=== PATIENT | female | born 1960 | race Caucasian/White ===

== ENCOUNTER 2025-11-09 10:35 | Emergency (ER) | payer MEDICARE, SELFPAY ==
--- OUTSIDE RECORDS SUMMARY | 2025-11-01 09:10 | XMS_ITS | Encounter Summary ---
Author Organization [facility] Address [address] [place] [address] Care Team Providers Care Tool And Fixture Repairer Name Role Phone Danny Duckworth MD Primary Care Provider [phone] Reason for Visit * Tx/Med Therapy Plan Auth (Routine) - Authorized Specialty Diagnoses / Procedures Referred By Contac t Referred To Contact Multi Specialty Diagnoses Iron deficiency anemia due to chronic blood loss Procedures [place] IRON SUCROSE INJECTION Zaire Alba NP [address] [facility] [address] [place] [address] Phone: tel: fax: [facility] Outpatient Services [address] [place] [address] Phone: tel: fax: Referral ID Status Reason Start Date Expiration Date V isits Requested Visits Authorized [id number] Authorized 08/27/2025 11/04/2025 6 6 Encounter Details Date Type Department Care Team (Latest Contact Info) Description 11/01/2025 9:10 AM DIESEL INSTRUCTOR - 11/01/2025 11:59 PM [facility] Hospital Encounter [facility] Outpatient Services [address] [address] Zaire Wahl NP [address] [facility] [address] [place] [address] Discharge Disposition: Home or Self Care Social History Tobacco Use Types Packs/Day Years Used Date Smoking Tobacco: Every Day Cigarettes 1 30 Passive Smoke Exposure: Current Smokeless Tobacco: Never Alcohol Use Standard Drinks/Week Comments Yes 0 (1 standard drink = 0.6 oz pur e alcohol) socially Feeling Safe Answer Date Recorded Are you in a relationship wi th someone who hurts you emotionally and/or physically? No 06/28/2024 Comments No Sex and Gender Information Value Date Recorded Sex Assigned at Not on file Legal Sex Female 9:51 AM DIESEL INSTRUCTOR Gender Identity Not on file Sexual Orientation Not on file documented as of this encounter Last Filed Vital Signs Vital Sign Reading Time Taken Comments Blood Pressure 154/68 11/01/2025 9:15 AM DIESEL INSTRUCTOR Pulse 102 11/01/2025 9:15 AM DIESEL INSTRUCTOR Temperature 36.6 C (97.8 F) 11/01/2025 9:15 AM DIESEL INSTRUCTOR Respiratory Rate 18 11/01/2025 9:15 AM DIESEL INSTRUCTOR Oxygen Saturation 98% 11/01/2025 9:15 AM DIESEL INSTRUCTOR Inhaled Oxygen Concentration - - Weight - - Height - - Body Mass Index - - documented in this encounter Functional Status * Adult Acuity Scoring Question Answer Date of Assessment Author Readmission Risk Score 6 11/02/2025 12:31 A M DIESEL INSTRUCTOR Batch User, [facility] Admit Inspector Aluminum Boat [id number] Score (Used for patients with atrial fibrillation) 3 11/02/2025 12:31 AM DIESEL INSTRUCTOR Batch User, [facility] Admit Inspector [employer] HAS-BLED Score (Used for patients with atrial fibrillation) 3 11/02/2025 12:31 AM DIESEL INSTRUCTOR Batch User, [facility] Admit Inspector Aluminum Boat documented as of this encounter Discharge Instructions * Attachments The following attachments cannot be sent through Care Everywhere. * Iron Rich Diet (Lithuanian) documented in this encounter Medications at Time of Discharge melatonin 5 mg Tablet Take 5 mg by mouth nightly as needed for Insomnia. ascorbic acid (VITAMIN C) 500 mg Tablet, Chewable Take 500 mg by mouth. rosuvastatin (CRESTOR) 10 mg tabletIndications:M ixed hyperlipidemia Take 1 Tablet (10 mg) by mouth daily. 100 Tablet 3 09/17/2025 metFORMIN (GLUCOPHAGE) 500 mg tabletIndications:P rediabetes Take 1 Tablet (500 mg) by mouth 2 times daily. 200 Tablet 3 09/17/2025 losartan (COZAAR) 50 mg tabletIndications:P rimary hypertension Take 1 Tablet (50 mg) by mouth daily. 100 Tablet 3 09/17/2025 hydroCHLOROthiazide 25 mg tabletIndications:P rimary hypertension Take 1 Tablet (25 mg) by mouth daily. 100 Tablet 3 09/17/2025 nicotine polacrilex (NICORETTE) 2 mg lozenge, miniIndications:Cig arette nicotine dependence without complication,Tobacc o use 1 Lozenge (2 mg) by Mouth/Throat route every 2 hours as needed for Smoking Cessation. 135 Lozenge 2 06/28/2025 ferrous sulfate 325 mg (65 mg iron) tabletIndications:I brandi deficiency anemia due to chronic blood loss TAKE ONE TABLET BY MOUTH DAILY 90 Tablet 3 06/20/2025 blood sugar diagnostic (Blood Glucose Test) StripIndications:Ty pe 2 diabetes mellitus without complication, without long-term current use of insulin ([facility]) Use 1 strip to test blood sugar once daily 100 Each 3 05/07/2025 clopidogreL (PLAVIX) 75 mg Tablet Take 1 Tablet (75 mg) by mouth daily. 90 Tablet 3 03/27/2025 citalopram (CeleXA) 40 mg tabletIndications:C royer mild episode of major depressive disorder, unspecified whether recurrent TAKE ONE TABLET BY MOUTH EVERY DAY 100 Tablet 1 03/27/2025 rOPINIRole (REQUIP) 0.5 mg tabletIndications:R estless legs TAKE ONE TABLET BY MOUTH DAILY AT BEDTIME 100 Tablet 3 02/19/2025 calcium carbonate + vitamin D (CALTRATE+D) 600 mg-10 mcg (400 unit) Tablet Take 1 Tablet by mouth daily. albuterol HFA 90 mcg inhaler Take 2 Puffs by inhalation every 6 hours as needed for Shortness of Breath. 04/16/2019 multivitamin (DAILY-ANDRES) tablet Take 1 Tablet by mouth daily before breakfast. 02/11/2016 loratadine (CLARITIN) 10 mg tablet Take 10 mg by mouth daily. 02/11/2016 pantoprazole (PROTONIX) 40 mg Tablet, Delayed Release (E.C.)Indications:G astroesophageal reflux disease, unspecified whether esophagitis present TAKE 1 TABLET BY MOUTH DAILY 100 Tablet 1 04/23/2025 5 documented as of this encounter Progress Notes * Nguyen Murray RN - 11/01/2025 9:30 AM CST Patient arrived to outpatient services for Venofer 300 mg infusions dose 2. Vital signs obtained and stable. RN started IV x 1 attempt with success to right AC with 22 ga and patient tolerated well. RN administered pre meds per order. RN then administered Venofer 300 mg infusion over 90 minutes andpatient tolerated well. After completion of infusion, RN flushed IV tubing with saline and removed IV with catheter intact and covered site with gauze and coban. Patient aware of next appt, signed AVS and discharged out of facility in stable condition. EL INSTRUCTOR documented in this encounter Plan of Treatment Upcoming Encounters Date Type Department Care Team (Late st Contact Info) Description 11/22/2025 11:00 AM DIESEL INSTRUCTOR Appointment [facility] Ultrasound [place] [address] [place] [phone] Cuauhtemoc Tan MD [address] [place] [phone] 11/25/2025 11:30 AM DIESEL INSTRUCTOR Appointment [facility] Nuclear Medicine [address] [place] [address] Cuauhtemoc Tan MD [address] [place] [phone] 11/25/2025 12:00 PM DIESEL INSTRUCTOR Appointment [facility] Nuclear Medicine [address] [place] [address] Cuauhtemoc Tan MD [address] [place] [phone] 12/10/2025 10:40 AM DIESEL INSTRUCTOR Office Visit [address] [phone] Danny Duckworth MD [address] [phone] 12/16/2025 11:10 AM DIESEL INSTRUCTOR Appointment [facility] [address] [address] Everett Tavarez MD [address] [place] [phone] 12/23/2025 10:00 AM DIESEL INSTRUCTOR Office Visit [facility] Cancer and Hematology [place] [address] [address] Everett Tavarez MD [address] [place] [phone] 03/19/2026 10:00 AM CDT Office Visit [facility] [address] [phone] Danny Duckworth MD [address] [phone] 05/07/2026 2:20 PM CDT Office Visit [facility] [address] [facility] [address] [place] [phone] Nathan Nash, CLEAN UP HELPER [employer] [address] [facility] [address] [place] [phone] documented as of this encounter Visit Diagnoses Diagnosis Iron deficiency anemia due to chronic blood loss- Primary Iron deficiency anemia secondary to blood loss (chronic) documented in this encounter Administered Medications Inactive Administered Medications - up to 3 most recent administrations Medication Order MAR Action Action Date Dose Rate Site acetaminophen (TYLENOL) tablet 650 mg 650 mg, Oral, ONE TIME ONLY, 1 dose, On Tue11/01/25 at 0915, RoutineIndications:Iron deficiency anemia due to chronic blood loss Given 11/01/2025 9:17 AM DIESEL INSTRUCTOR 650 mg cetirizine (ZyrTEC) tablet 10 mg 10 mg, Oral, ONE TIME ONLY, 1 dose, On Tue11/01/25 at 0915, RoutineIndications:Iron deficiency anemia due to chronic blood loss Given 11/01/2025 9:17 AM DIESEL INSTRUCTOR 10 mg iron sucrose (VENOFER) 300 mg in sodium chloride 0.9 % 250 mL IVPB 300 mg, IV, ONE TIME ONLY, 1 dose, On Tue11/01/25 at 0915, RoutineIndications:Iron deficiency anemia due to chronic blood loss New Bag 11/01/2025 9:47 AM DIESEL INSTRUCTOR 300 mg methylPREDNISolone sodium succinate (SOLU-Medrol) 40 mg in sterile water 1 mL injection 40 mg, IV, ONE TIME ONLY, 1 dose, On Tue11/01/25 at 0915, RoutineIndications:Iron deficiency anemia due to chronic blood loss Given 11/01/2025 9:29 AM DIESEL INSTRUCTOR 40 mg sodium chloride flush injection 10 mL 10 mL, IV, SEE ADMIN INSTRUCTIONS, Starting on Tue11/01/25 at 0912, Until 11/02/25 at 0231, RoutineIndications:Iron deficiency anemia due to chronic blood loss Given 11/01/2025 9:29 AM DIESEL INSTRUCTOR 10 mL documented in this encounter Care Teams Tool And Fixture Repairer Relationship Specialty Start Date End Date Danny Duckworth MD [address] [place] [phone] PCP - General Family Practice 03/06/24 documented as of this encounter
--- OUTSIDE RECORDS SUMMARY | 2025-11-04 09:26 | XMS_ITS | Encounter Summary ---
Author Organization [facility] Address [address] [place] [address] Care Team Providers Care Loading Dock Hand Name Role Phone Danny Duckworth MD Primary Care Provider [phone] Reason for Visit * Tx/Med Therapy Plan Auth (Routine) - Authorized Specialty Diagnoses / Procedures Referred By Contac t Referred To Contact Multi Specialty Diagnoses Iron deficiency anemia due to chronic blood loss Procedures [place] IRON SUCROSE INJECTION Zaire Alba NP [address] [address] Phone: tel: fax: [facility] Outpatient Services [address] [place] [address] Phone: tel: fax: Referral ID Status Reason Start Date Expiration Date V isits Requested Visits Authorized [id number] Authorized 08/27/2025 11/04/2025 6 6 Encounter Details Date Type Department Care Team (Latest Contact Info) Description 11/04/2025 9:26 AM FIELD PROFESSIONAL - 11/04/2025 11:59 PM [facility] Hospital Encounter [facility] Outpatient Services [address] [phone] Zaire Wahl NP [address] [facility] [address] [place] [address] Discharge Disposition: Home or Self [...] on file Legal Sex Female 9:51 AM FIELD PROFESSIONAL Gender Identity Not on file Sexual Orientation Not on file documented as of this encounter Last Filed Vital Signs Vital Sign Reading Time Taken Comments Blood Pressure 132/61 11/04/2025 10:10 AM FIELD PROFESSIONAL Pulse 113 11/04/2025 10:10 AM FIELD PROFESSIONAL Temperature 36.7 C (98.1 F) 11/04/2025 10:10 AM FIELD PROFESSIONAL Respiratory Rate 18 11/04/2025 10:10 AM FIELD PROFESSIONAL Oxygen Saturation 98% 11/04/2025 10:10 AM FIELD PROFESSIONAL Inhaled Oxygen Concentration - - Weight - - Height - - Body Mass Index - - documented in this encounter Functional Status * Adult Acuity Scoring Question Answer Date of Assessment Author Readmission Risk Score 6 11/05/2025 12:33 A M FIELD PROFESSIONAL Batch User, [facility] Admit Relief Mate [id number] Score (Used for patients with atrial fibrillation) 3 11/05/2025 12:33 AM FIELD PROFESSIONAL Batch User, [facility] Admit Relief Mate HAS-BLED Score (Used for patients with atrial fibrillation) 3 11/05/2025 12:33 AM FIELD PROFESSIONAL Batch User, [facility] Admit Relief Mate documented as of this encounter Discharge Instructions * Attachments The following attachments cannot be sent through Care Everywhere. * Iron Rich Diet (St Helenian) documented in this encounter Medications at Time of Discharge pantoprazole (PROTONIX) 40 mg Tablet, Delayed Release (E.C.)Indications:G astroesophageal reflux disease, unspecified whether esophagitis present TAKE 1 TABLET BY MOUTH DAILY 100 Tablet 3 11/04/2025 melatonin 5 mg Tablet Take 5 mg [...] complication, without long-term current use of insulin ([facility]) Use 1 strip to test blood sugar once daily 100 Each 3 05/07/2025 clopidogreL (PLAVIX) 75 mg Tablet Take 1 Tablet (75 mg) by mouth daily. 90 Tablet 3 03/27/2025 citalopram (CeleXA) 40 mg tabletIndications:C kathrinerenpolly mild episode of major depressive disorder, unspecified [...] Take 10 mg by mouth daily. 02/11/2016 documented as of this encounter Progress Notes * Nguyen Murray RN - 11/04/2025 9:30 AM CST Patient arrived to outpatient services for Venofer 300 mg infusions dose 3. Vital signs obtained and stable. RN started [...] discharged out of facility in stable condition. D PROFESSIONAL documented in this encounter Plan of Treatment Upcoming Encounters Date Type Department Care Team (Late st Contact Info) Description 11/22/2025 11:00 AM FIELD PROFESSIONAL Appointment [facility] Ultrasound [place] [address] [place] [phone] Cuauhtemoc Tan MD [address] [place] [place] [phone] 11/25/2025 11:30 AM FIELD PROFESSIONAL Appointment [facility] Nuclear Medicine [address] [place] [address] Cuauhtemoc Tan MD [address] [place] [address] [place] [phone] 11/25/2025 12:00 PM FIELD PROFESSIONAL Appointment [facility] Nuclear Medicine [address] [place] [address] Cuauhtemoc Tan MD [address] [place] [address] [place] [phone] 12/10/2025 10:40 AM FIELD PROFESSIONAL Office Visit [address] [phone] Danny Duckworth MD [address] [phone] 12/16/2025 11:10 AM FIELD PROFESSIONAL Appointment [facility] Laboratory Services [address] [facility] [address] [place] [address] Everett Tavarez MD [address] [place] [address] [address] [place] [address] 12/23/2025 10:00 AM FIELD PROFESSIONAL Office Visit [facility] Cancer and Hematology [place] [address] [facility] 2 [place] [address] Everett Tavarez MD [address] [place] [phone] 03/19/2026 10:00 AM CDT Office Visit [address] [phone] Danny Duckworth MD [address] [phone] 05/07/2026 2:20 PM CDT Office Visit [facility] [address] [facility] [address] [place] [phone] Nathan Nash, [facility] [address] [facility] [address] [place] [phone] documented as of this encounter Visit [...] Oral, ONE TIME ONLY, 1 dose, On Tue11/04/25 at 0930, RoutineIndications:Iron deficiency anemia due to chronic blood loss Given 11/04/2025 10:12 AM FIELD PROFESSIONAL 650 mg cetirizine (ZyrTEC) tablet 10 mg 10 mg, Oral, ONE TIME ONLY, 1 dose, On Tue11/04/25 at 0930, RoutineIndications:Iron deficiency anemia due to chronic blood loss Given 11/04/2025 10:12 AM FIELD PROFESSIONAL 10 mg iron sucrose (VENOFER) 300 mg in sodium chloride 0.9 % 250 mL IVPB 300 mg, IV, ONE TIME ONLY, 1 dose, On Tue11/04/25 at 0930, RoutineIndications:Iron deficiency anemia due to chronic blood loss New Bag 11/04/2025 10:40 AM FIELD PROFESSIONAL 300 mg methylPREDNISolone sodium succinate (SOLU-Medrol) 40 mg in sterile water 1 mL injection 40 mg, IV, ONE TIME ONLY, 1 dose, On Tue11/04/25 at 0930, RoutineIndications:Iron deficiency anemia due to chronic blood loss Given 11/04/2025 10:18 AM FIELD PROFESSIONAL 40 mg sodium chloride flush injection 10 mL 10 mL, IV, SEE ADMIN INSTRUCTIONS, Starting on Tue11/04/25 at 0927, Until Tue11/05/25 at 0233, RoutineIndications:Iron deficiency anemia due to chronic blood loss Given 11/04/2025 12:13 PM FIELD PROFESSIONAL 10 mL Given 11/04/2025 10:41 AM FIELD PROFESSIONAL 10 mL documented in this encounter Care Teams Loading Dock Hand Relationship Specialty Start Date End Date Danny Duckworth MD [address] [place] [phone] PCP - General Family Practice 03/06/24 documented as of this encounter
--- OUTSIDE RECORDS SUMMARY | 2025-11-05 11:15 | XMS_ITS | Encounter Summary ---
[facility] Organization [facility] Address [address] [place] [address] Care Team Providers Care Incident Analyst Name Role Phone Danny Duckworth MD Primary Care Provider [phone] Reason for Referral * Nuclear Medicine (Routine) - Authorized Specialty Diagnoses / Procedures Referred By Contac t Referred To Contact Radiology Diagnoses Other forms of angina pectoris Shortness of breath Hypertension, essential Mixed hyperlipidemia ASHD (arteriosclerotic heart disease) Tobacco use Stage 3a chronic kidney disease (CMS/HCC) Morbid obesity (CMS/HCC) Procedures NM PHARMACOLOGICAL STRESS TEST Cuauhtemoc Tan MD [address] [place] [phone] Phone: tel: fax: [facility] Nuclear Medicine [address] [place] [phone] Phone: tel: fax: Referral ID Status Reason Start Date Expiration Date Visits Requested Visits Authorized [id number] Authorized F CTS to Schedule 5 12/06/2026 1 1 IC HEALTH ADMINISTRATOR * Nuclear Medicine (Routine) - Pending Review Specialty Diagnoses / Procedures Referred By Contac t Referred To Contact Radiology Diagnoses Other forms of angina pectoris Shortness of breath Hypertension, essential Mixed hyperlipidemia ASHD (arteriosclerotic heart disease) Tobacco use Stage 3a chronic kidney disease (CMS/HCC) Morbid obesity (CMS/HCC) Procedures NM MYOCARD PERF IMAG SPECT MULT Cuauhtemoc Tan MD [address] [place] [address] Phone: tel: fax: [facility] Nuclear Medicine [address] [place] [address] Phone: tel: fax: Referral ID Status Reason Start Date Expiration Date Visits Requested Visits Authorized [id number] Pending Review SGF CTS to Schedule 5 12/06/2026 1 1 IC HEALTH ADMINISTRATOR * Echocardiography (Routine) - Pending Review Specialty Diagnoses / Procedures Referred By Morenita t Referred To Contact Radiology Diagnoses Other forms of angina pectoris Shortness of breath Hypertension, essential Mixed hyperlipidemia ASHD (arteriosclerotic heart disease) Tobacco use Stage 3a chronic kidney disease (CMS/HCC) Morbid obesity (CMS/HCC) Procedures ECHO COMPLETE - CONTRAST AND STRAIN IF INDICATED ECHO COMPLETE - CONTRAST AND STRAIN IF INDICATED HI ECHO TTHRC R-T 2D W/WOM-MODE COMPL SPEC&COLR D HI MYOCRD STRAIN IMG SPECKLE TRCK ASSMT MYOCRD [facility] HI TTE W OR WO FOL WCON,DOPPLER Cuauhtemoc Tan MD [address] [place] [address] Phone: tel: fax: [facility] [place] [address] [place] [address] Phone: tel: fax: Referral ID Status Reason Start Date Expiration Date Visits Requested Visits Authorized [id number] Pending Review [facility] CTS to Schedule 5 12/06/2026 1 1 IC HEALTH ADMINISTRATOR Reason for Visit * Reason Comments Referral * Eval and Treat (Routine) - Closed Specialty Diagnoses / Procedures Referred By Contact Referred To Contact Interventional Cardiology / Cardiology Diagnoses Atherosclerosis of coronary artery, unspecified vessel or lesion type, unspecified whether angina present, unspecified whether [place] or transplanted heart Procedures HI OFFICE/OUTPATIENT ESTABLISHED MOD MDM 30 MIN HI OFFICE/OUTPATIENT NEW MODERATE MDM 45 MINUTES Everett Tavarez MD [address] [facility] [address] [place] [address] Phone: tel: fax:[phone] [facility] [address] [place] [phone] Phone: tel: fax: Referral ID Status Reason Start Date Expiration Date Visits Re quested Visits Authorized [id number] Closed 10/24/2025 10/24/2026 1 1 Encounter Details Date Type Department Care Team (Late st Contact Info) Description 11/05/2025 11:15 AM PUBLIC HEALTH ADMINISTRATOR Office Visit [facility] [address] [place] [phone] Everett Tavarez MD [address] [address] Cuauhtemoc Tan MD [address] [place] [phone] Other forms of angina pectoris (Primary Dx); Shortness of breath; Hypertension, essential; Mixed hyperlipidemia; ASHD (arteriosclerotic heart disease); Tobacco use; Stage 3a chronic kidney disease (CMS/HCC); Morbid obesity (CMS/HCC) Social History Tobacco Use Types Packs/Day Years [...] on file Legal Sex Female 9:51 AM PUBLIC HEALTH ADMINISTRATOR Gender Identity Not on file Sexual Orientation Not on file documented as of this encounter Last Filed Vital Signs Vital Sign Reading Time Taken Comments Blood Pressure 130/60 11/05/2025 10:39 AM PUBLIC HEALTH ADMINISTRATOR Pulse 109 11/05/2025 10:39 AM PUBLIC HEALTH ADMINISTRATOR Temperature - - Respiratory Rate - - Oxygen Saturation - - Inhaled Oxygen Concentration - - Weight 97.7 kg (215 lb 6.4 oz) 11/05/2025 10:39 AM PUBLIC HEALTH ADMINISTRATOR Height 156.2 cm (5' 1.5 ) 11/05/2025 10:39 AM CS T Body Mass Index 40.04 11/05/2025 10:39 AM PUBLIC HEALTH ADMINISTRATOR documented in this encounter Progress Notes * Cuauhtemoc Tan MD - 11/05/2025 10:47 AM CSTAssociated Order(s): EKG 12-LEAD Pre-Procedure Diagnose(s): Hypertension, unspecified type Images from the original note were not included. Cardiology Clinic Note Patient name: Cristal Broussard. [id number] Date of : 1960 Reason for Consultation Referral Subjective: History of Present Illness: Patient Active Problem List Diagnosis Code Left direct anterior FAB- Janessa 02/18/2016 M16.12 Left hip pain M25.552 Tobacco use Z72.0 Depression F32.A GERD (gastroesophageal reflux disease) K21.9 Anxiety F41.9 Osteoporosis M81.0 Dyshidrotic eczema L30.1 HTN (hypertension) I10 Hyperlipidemia E78.5 Latex sensitivity Z91.040 Current smoker F17.200 Inflammatory arthritis M13.80 DDD (degenerative disc disease), lumbar M51.369 Elevated liver enzymes R74.8 Degenerative lumbar spinal stenosis M48.061 Iron deficiency anemia due to chronic blood loss D50.0 Prediabetes R73.03 Stage 3a chronic kidney disease (CMS/HCC) N18.31 Morbid obesity (CMS/HCC) E66.01 Ingrown toenail of both feet L60.0 Cristal Broussard is a 65 y.o. year old female who Past Medical History: No date: Anxiety No date: COPD (chronic obstructive pulmonary disease) (CMS/HCC) No date: Current smoker No date: DDD (degenerative disc disease), lumbar No date: Depression No date: Dyspnea on exertion No date: Eye injury Comment: Metal years ago No date: GERD (gastroesophageal reflux disease) No date: HTN (hypertension) No date: Hyperlipidemia No date: Hypothyroidism Comment: pt denies No date: Inflammatory arthritis No date: Injury of back No date: Joint pain No date: Latex sensitivity No date: Night sweats No date: Obesity (BMI 30-39.9) No date: Osteoporosis No date: Preop general physical exam No date: Smoker 04/07/2017: Status post total replacement of left hip 65-year-old female with past medical Struve hypertension, hyperlipidemia, ASHD (patient mentions she has had blockages in her mesenteric artery status post stenting/PAD), COPD, ongoing tobacco abuse,GERD is here to establish care with cardiology. On further questioning patient mentions that patient has been having significant episodes of chest pain, atypical, pressure-like, substernal, precordial, nonpositional, nonpleuritic, nonpalpable, no aggravating or relieving factors, no radiation and also has shortness of breath with mild levels of exertion. Patient denies any presyncopal or syncopal episodes. To evaluate for above will do echocardiogram, exercise stress test. I explained the entire procedures, alternatives in detail with all the risk and benefit involved. I also explained that if any of the testing were to come abnormal patient may need further invasive/noninvasive testing including coronary angiography plus minus PCI versus cardiac CTA versus other modalities. I explained the procedure in detail as well as with all the risk and benefit involved and the patient is agreeable to move forward with the plan. Will request PCP to consider referral to vascular surgery for aforementioned PAD/mesenteric artery issues. Evaluation, management and appropriate referrals for noncardiac etiologies potentially contributingto patient's presentation will be deferred to patient's PCP. I had an extensive discussion with thepatient regarding further course of action, necessary testing, emergency precautions and patient isagreeable with the same. Past Medical History: Past Medical History: Diagnosis Date Anxiety COPD (chronic obstructive pulmonary disease) ([facility]) Current smoker DDD (degenerative disc disease), lumbar Depression Dyspnea on exertion Eye injury Metal years ago GERD (gastroesophageal reflux disease) HTN (hypertension) Hyperlipidemia Hypothyroidism pt denies Inflammatory arthritis Injury of back Joint pain Latex sensitivity Night sweats Obesity (BMI 30-39.9) Osteoporosis Preop general physical exam Smoker Status post total replacement of left hip 04/07/2017 Past Surgical History: Past Surgical History: Procedure Laterality Date HX CARPAL TUNNEL RELEASE HX SECTION HX COLONOSCOPY N/A 06/28/2024 COLONOSCOPY performed by Prudencio Samayoa DO at [facility] ENDOSCOPY ASIA HX ESOPHAGOGASTRODUODENOSCOPY N/A 06/28/2024 ESOPHAGOGASTRODUODENOSCOPY performed by Prudencio Samayoa DO at [facility] ENDOSCOPY ASIA HX HEMORRHOIDECTOMY 11/2020 HX KNEE SURGERY Left 2014 x2 arthroscopy x 2 scope and graft HI ARTHRODESIS POSTERIOR INTERBODY 1 NTRSPC LUMBAR N/A 06/09/2021 LUMBAR INTERBODY FUSION 1 LEVEL POSTERIOR performed by Kahlida Smith MD at [facility] OR HI ARTHRODESIS POSTERIOR/PSTLAT TQ 1NTRSPC LUMBAR N/A 06/09/2021 LUMBAR SPINAL FUSION 1 LEVEL POSTERIOR performed by Khalida Smith MD at [facility] OR HI ARTHRODESIS POSTERIOR/PSTLAT TQ 1NTRSPC LUMBAR N/A 06/09/2021 LUMBAR SPINAL FUSION performed by Khalida Smith MD at [facility] OR HI ARTHRP ACETBLR/PROX FEM PROSTC AGRFT/ALGRFT Left 02/18/2016 HIP ARTHROPLASTY TOTAL ANTERIOR APPROACH performed by Darian Pizarro MD at [facility] OR HI DIAGNOSTIC ARTHROSCOPY SHOULDER +- SYNOVIAL BX Right 05/11/2019 SHOULDER ARTHROSCOPY performed by Jv [place] MD at [facility] OR HI IONM 1 ON 1 IN OR W/ATTENDANCE EACH 15 MINUTES N/A 06/09/2021 INTRAOPERATIVE NEUROPHYSIOLOGIC MONITORING performed by Khalida Smith MD at [facility] OR HI SURGICAL ARTHROSCOPY GASPER W/CORACOACRM LIGM RLS Right 05/11/2019 SHOULDER ACROMIOPLASTY ARTHROSCOPIC performed by Jv [place] MD at [facility] OR HI SURGICAL ARTHROSCOPY SHOULDER DSTL CLAVICULC Right 05/11/2019 SHOULDER W/ DISTAL CLAVICLE RESECTION ARTHROSCOPIC performed by Jv [place] MD at [facility] OR HI SURGICAL ARTHROSCOPY SHOULDER W/ROTATOR CUFF RPR Right 05/11/2019 SHOULDER ROTATOR CUFF ARTHROSCOPY performed by Jv [place] MD at [facility] OR HI TENODESIS LONG TENDON BICEPS Right 05/11/2019 BICEPS TENODESIS performed by Jv [place] MD at [facility] OR Allergies: Allergies Allergen Reactions Sulfa (Sulfonamide Antibiotics) Diarrhea Clindamycin Rash and Itching Latex Rash After prolonged exposure. Naproxen Sodium Swelling Sulfamethoxazole-Trimethoprim Rash Current Medications: Current Outpatient Medications Medication Sig Dispense Refill pantoprazole (PROTONIX) 40 mg Tablet, Delayed Release (E.C.) TAKE 1 TABLET BY MOUTH DAILY 100 Tablet 3 melatonin 5 mg Tablet Take 5 mg by mouth nightly as needed for Insomnia. ascorbic acid (VITAMIN C) 500 mg Tablet, Chewable Take 500 mg by mouth. rosuvastatin (CRESTOR) 10 mg tablet Take 1 Tablet (10 mg) by mouth daily. 100 Tablet 3 metFORMIN (GLUCOPHAGE) 500 mg tablet Take 1 Tablet (500 mg) by mouth 2 times daily. 200 Tablet 3 losartan (COZAAR) 50 mg tablet Take 1 Tablet (50 mg) by mouth daily. 100 Tablet 3 hydroCHLOROthiazide 25 mg tablet Take 1 Tablet (25 mg) by mouth daily. 100 Tablet 3 ferrous sulfate 325 mg (65 mg iron) tablet TAKE ONE TABLET BY MOUTH DAILY 90 Tablet 3 blood sugar diagnostic (Blood Glucose Test) Strip Use 1 strip to test blood sugar once daily 100 Each 3 clopidogreL (PLAVIX) 75 mg Tablet Take 1 Tablet (75 mg) by mouth daily. 90 Tablet 3 citalopram (CeleXA) 40 mg tablet TAKE ONE TABLET BY MOUTH EVERY DAY 100 Tablet 1 rOPINIRole (REQUIP) 0.5 mg tablet TAKE ONE TABLET BY MOUTH DAILY AT BEDTIME 100 Tablet 3 calcium carbonate + vitamin D (CALTRATE+D) 600 mg-10 mcg (400 unit) Tablet Take 1 Tablet by mouth daily. albuterol HFA 90 mcg inhaler Take 2 Puffs by inhalation every 6 hours as needed for Shortness of Breath. multivitamin (DAILY-ANDRES) tablet Take 1 Tablet by mouth daily before breakfast. loratadine (CLARITIN) 10 mg tablet Take 10 mg by mouth daily. nicotine polacrilex (NICORETTE) 2 mg lozenge, mini 1 Lozenge (2 mg) by Mouth/Throat route every 2 hours as needed for Smoking Cessation. (Patient not taking: Reported on 11/05/2025) 135 Lozenge 2 No current facility-administered medications for this visit. Facility-Administered Medications Ordered in Other Visits Medication Dose Route Frequency Provider Last Rate Last Admin [COMPLETED] iron sucrose (VENOFER) 300 mg in sodium chloride 0.9 % 250 mL IVPB 300 mg IV ONE time only Zaire aWhl NP Stopped at 11/04/25 121 [DISCONTINUED] sodium chloride flush injection 10 mL 10 mL IV see admin instructions Zaire Wahl NP 10 mL at 11/04/25 1213 [DISCONTINUED] sodium chloride 0.9 % infusion 30-999 mL/hr IV continuous Zaire Wahl NP Current Outpatient Medications Medication pantoprazole (PROTONIX) 40 mg Tablet, Delayed Release (E.C.) melatonin 5 mg Tablet ascorbic acid (VITAMIN C) 500 mg Tablet, Chewable rosuvastatin (CRESTOR) 10 mg tablet metFORMIN (GLUCOPHAGE) 500 mg tablet losartan (COZAAR) 50 mg tablet hydroCHLOROthiazide 25 mg tablet ferrous sulfate 325 mg (65 mg iron) tablet blood sugar diagnostic (Blood Glucose Test) Strip clopidogreL (PLAVIX) 75 mg Tablet citalopram (CeleXA) 40 mg tablet rOPINIRole (REQUIP) 0.5 mg tablet calcium carbonate + vitamin D (CALTRATE+D) 600 mg-10 mcg (400 unit) Tablet albuterol HFA 90 mcg inhaler multivitamin (DAILY-ANDRES) tablet loratadine (CLARITIN) 10 mg tablet nicotine polacrilex (NICORETTE) 2 mg lozenge, mini No current facility-administered medications for this visit. Family History: Family History Problem Relation Name Age of Onset Cancer - Other Mother Cervical Cancer Mother cervical Kidney Disease Father Heart Disease Father Cancer - Other Sister Patricia Cervical CA Healthy Sister Patricia Cancer Sister Tiffanie cervical Heart Disease Brother Ellyn Diabetes Brother Ellyn Cancer Brother Christopher esophageal, smoker Healthy Daughter Selin Healthy Son Jamar Breast Cancer Neg Hx Ovarian Cancer Neg Hx Social History: Social History Tobacco Use Smoking status: Every Day Current packs/day: 1.00 Average packs/day: 1 pack/day for 30.0 years (30.0 ttl pk-yrs) Types: Cigarettes Passive exposure: Current Smokeless tobacco: Never Vaping Use Vaping status: Former Passive vaping exposure: Yes Substance Use Topics Alcohol use: Yes Comment: socially Drug use: Yes Types: Marijuana Comment: liya Review of Systems: All 12 systems were reviewed and are negative except pertinent positives already dictated under HPI. FH and SH reviewed. Physical Exam: BP 130/60 Pulse (!) 109 Ht 5' 1.5 (1.562 m) Wt 97.7 kg (215 lb 6.4 oz) BMI 40.04 kg/m?? Gen: NAD; Alert and oriented, no acute distress CV: RRR, 1/6 systolic murmur present in precordium, audible s1/s2 Chest: CTAB, non-labored respiration Abdominal: Soft, non-tender, non-distended, normal bowel sounds. Ext: Trace edema LABORATORY: No results for input(s): WBC , HGB , HCT , PLT in the last 72 hours. No results for input(s): NA , K , CL , CO2 , CA , BUN , CREAT , GLUCOSE in the last 72 hours. No results for input(s): TOTALPROTEIN , ALBUMIN , BILITOTAL , ALKPHOS , AST , ALT in the last 72 hours. No results for input(s): INR , PT in the last 72 hours. Invalid input(s): PTT No results for input(s): BASETROP , 2HRTROP , DELTA , 6HRTROP in the last 72 hours. CBC: Lab Results Component Value Date WBC 8.7 10/14/2025 WBC 9.9 09/17/2025 WBC 9.0 09/06/2025 Lab Results Component Value Date HGB 8.4 (L) 10/14/2025 HGB 8.9 (L) 09/17/2025 HGB 8.7 (L) 09/06/2025 HGB 8.4 (L) 08/12/2025 HGB 9.8 (L) 03/13/2025 HGB 12.4 05/27/2021 Lab Results Component Value Date HCT 27.1 (L) 10/14/2025 HCT 29.1 (L) 09/17/2025 HCT 27.9 (L) 09/06/2025 HCT 27.7 (L) 08/12/2025 HCT 32.5 (L) 03/13/2025 HCT 38.7 05/27/2021 Lab Results Component Value Date PLT 174 10/14/2025 PLT 164 09/17/2025 PLT 199 09/06/2025 Comp: Lab Results Component Value Date NA 136 10/14/2025 NA 136 08/12/2025 NA 137 03/13/2025 Lab Results Component Value Date K 3.4 (L) 10/14/2025 K 4.1 08/12/2025 K 4.1 03/13/2025 Lab Results Component Value Date CL 99 10/14/2025 CL 100 08/12/2025 CL 100 03/13/2025 Lab Results Component Value Date CO2 21 10/14/2025 CO2 21 (L) 08/12/2025 CO2 28 03/13/2025 Lab Results Component Value Date CA 9.2 10/14/2025 CA 9.5 08/12/2025 CA 9.4 03/13/2025 Lab Results Component Value Date BUN 16 10/14/2025 BUN 16 08/12/2025 BUN 19 03/13/2025 Lab Results Component Value Date CREAT 0.89 10/14/2025 CREAT 0.97 (H) 08/12/2025 CREAT 1.05 03/13/2025 CREAT 1.17 (H) 09/03/2024 CREAT 1.10 (H) 03/06/2024 Lab Results Component Value Date GLUCOSE 240 (H) 10/14/2025 GLUCOSE 255 (H) 08/12/2025 GLUCOSE 181 (H) 03/13/2025 Lab Results Component Value Date TOTALPROTEIN 6.7 10/14/2025 TOTALPROTEIN 7.4 08/12/2025 TOTALPROTEIN 6.8 03/13/2025 TOTALPROTEIN 6.5 09/03/2024 TOTALPROTEIN 7.6 05/27/2021 TOTALPROTEIN 8.0 02/11/2016 Lab Results Component Value Date ALBUMIN 4.0 10/14/2025 ALBUMIN 3.9 08/12/2025 ALBUMIN 4.2 03/13/2025 ALBUMIN 3.9 09/03/2024 ALBUMIN 4.0 05/27/2021 ALBUMIN 4.6 02/11/2016 Lab Results Component Value Date BILITOTAL 0.3 10/14/2025 BILITOTAL <0.2 08/12/2025 BILITOTAL 0.2 03/13/2025 Lab Results Component Value Date ALKPHOS 68 10/14/2025 ALKPHOS 81 08/12/2025 ALKPHOS 76 03/13/2025 ALKPHOS 75 09/03/2024 ALKPHOS 105 (H) 05/27/2021 ALKPHOS 90 02/11/2016 Lab Results Component Value Date AST 50 (H) 10/14/2025 AST 64 (H) 08/12/2025 AST 42 (H) 03/13/2025 Lab Results Component Value Date ALT 44 (H) 10/14/2025 ALT 56 (H) 08/12/2025 ALT 43 (H) 03/13/2025 Lab Results Component Value Date GFR 72 10/14/2025 GFR >60 08/12/2025 GFR 59 (L) 03/13/2025 GFR 52 (L) 09/03/2024 GFR >60 05/27/2021 GFR >60 02/19/2016 Lab Results Component Value Date GFRA[place] >60 05/27/2021 GFRA[place] >60 02/19/2016 GFRA[place] >60 02/11/2016 Lab Results Component Value Date ANIONGAP 15 08/12/2025 ANIONGAP 12 05/27/2021 ANIONGAP 11 02/19/2016 Coags: No results found for: PT No results found for: INR No results found for: APTT FLP: No results found for: CHOLTOT No results found for: TRIGLYCERIDE No results found for: HDL No results found for: LDLCALC No results found for: NONHDLCHOL DM: Lab Results Component Value Date HGBA1C 6.4 (H) 09/17/2025 HGBA1C 5.7 (H) 09/03/2024 HGBA1C 6.2 (H) 06/05/2024 No results found for: ESTAVEGLU Thyroid: No results found for: TSH No results found for: T4FREE No results found for: T4 No results found for: T3 No results found for: THROIDAB Cardiac: No results found for: TROPONIN No results found for: CKTOTALREF No results found for: CKMB No results found for: BNP Other Results: Results for orders placed or performed during the hospital encounter of 05/27/21 EKG 12-LEAD [facility] Test Date: 2021-05-27 Pat Name: CRISTAL BROUSSARD Department: 50 Room: Gender: Female Drilling Inspector: TERESA MESAB: 1960 Requested By: MD ALLYSON Order Number: [id number] Reading MD: Kj Lord Measurements Intervals [place] Rate: 100 P: 73 HI: 112 QRS: 64 QRSD: 84 T: 64 QT: 368 QTc: 474 Interpretive Statements Normal sinus rhythm Short pr interval Prolonged QT interval Electronically Signed On 05-27-2021 11:04:32 CDT by Kj Lord EKG 12-LEAD Date/Time: 11/05/2025 11:15 AM Performed by: Cuauhtemoc Tan MD Authorized by: Cuauhtemoc Tan MD Comments: Sinus tachycardia, nonspecific ST- T wave changes, borderline EKG. ASSESSMENT AND PLAN: Patient Active Problem List Diagnosis Code Left direct anterior FAB- Janessa 02/18/2016 M16.12 Left hip pain M25.552 Tobacco use Z72.0 Depression F32.A GERD (gastroesophageal reflux disease) K21.9 Anxiety F41.9 Osteoporosis M81.0 Dyshidrotic eczema L30.1 HTN (hypertension) I10 Hyperlipidemia E78.5 Latex sensitivity Z91.040 Current smoker F17.200 Inflammatory arthritis M13.80 DDD (degenerative disc disease), lumbar M51.369 Elevated liver enzymes R74.8 Degenerative lumbar spinal stenosis M48.061 Iron deficiency anemia due to chronic blood loss D50.0 Prediabetes R73.03 Stage 3a chronic kidney disease (CMS/HCC) N18.31 Morbid obesity (CMS/HCC) E66.01 Ingrown toenail of both feet L60.0 65-year-old female with past medical Struve hypertension, hyperlipidemia, ASHD (patient mentions she has had blockages in her mesenteric artery status post stenting/PAD), COPD, ongoing tobacco abuse,GERD is here to establish care with cardiology. On further questioning patient mentions that patient has been having significant episodes of chest pain, atypical, pressure-like, substernal, precordial, nonpositional, nonpleuritic, nonpalpable, no aggravating or relieving factors, no radiation and also has shortness of breath with mild levels of exertion. Patient denies any presyncopal or syncopal episodes. To evaluate for above will do echocardiogram, exercise stress test. I explained the entire procedures, alternatives in detail with all the risk and benefit involved. I also explained that if any of the testing were to come abnormal patient may need further invasive/noninvasive testing including coronary angiography plus minus PCI versus cardiac CTA versus other modalities. I explained the procedure in detail as well as with all the risk and benefit involved and the patient is agreeable to move forward with the plan. Will request PCP to consider referral to vascular surgery for aforementioned PAD/mesenteric artery issues. Evaluation, management and appropriate referrals for noncardiac etiologies potentially contributingto patient's presentation will be deferred to patient's PCP. I had an extensive discussion with thepatient regarding further course of action, necessary testing, emergency precautions and patient isagreeable with the same. Anti-Lipid therapies: Will request PCP clinic to help recheck lipid panel and further titrate per guideline directed medical therapy. In addition we will continue with, Aggressive risk factor modification and lifestyle changes. Continue with current guideline directed maximally tolerated aggressive medical therapy. Current Outpatient Medications Medication pantoprazole (PROTONIX) 40 mg Tablet, Delayed Release (E.C.) melatonin 5 mg Tablet ascorbic acid (VITAMIN C) 500 mg Tablet, Chewable rosuvastatin (CRESTOR) 10 mg tablet metFORMIN (GLUCOPHAGE) 500 mg tablet losartan (COZAAR) 50 mg tablet hydroCHLOROthiazide 25 mg tablet ferrous sulfate 325 mg (65 mg iron) tablet blood sugar diagnostic (Blood Glucose Test) Strip clopidogreL (PLAVIX) 75 mg Tablet citalopram (CeleXA) 40 mg tablet rOPINIRole (REQUIP) 0.5 mg tablet calcium carbonate + vitamin D (CALTRATE+D) 600 mg-10 mcg (400 unit) Tablet albuterol HFA 90 mcg inhaler multivitamin (DAILY-ANDRES) tablet loratadine (CLARITIN) 10 mg tablet nicotine polacrilex (NICORETTE) 2 mg lozenge, mini No current facility-administered medications for this visit. Additionally, Keep a blood pressure log and bring it to the next PCP appointment where further titration of bloodpressure medications will be performed. Continue to follow with PCP/ other specialists for appropriate management and treatment of chronic issues. Will request PCP to continue evaluation and workup of noncardiac etiologies contributing to patient's symptoms as described above. Will request the staff/RN to refill all current cardiovascular medications and help placing & reviewing orders as discussed above in the plan. Will also request the assisting staff/RN to go over the plan and education with patient again. The risks, benefits and alternative of the above management were discussed with patient and/or family. All questions were answered and with shared decision making model, above management options are being implemented. Further management based on follow-up. No orders of the defined types were placed in this encounter. I performed a history and physical examination of the patient. I had an extensive discussion with patient (and/or family member and/or surrogate/POA) about the options of medications, invasive and noninvasive procedures as recommended by current guidelines. Patient (and/or family member and/or surro gate/POA) verbalized understanding of assessment and willingness to implement the plan as describedafter understanding the risks and benefits of each. I had extensive discussion with the patient regarding emergency precautions and explained that patient should call 911 or go to the nearest ER if any of the symptoms were to recur/progress/worsen including chest pain, shortness of breath altered mental status, presyncopal or syncopal episodes, palpitations or any other acute issues patient is agreeable with the same. Portions of this note may have been copied from prior notes /templates however appropriate and necessary changes have been made to reflect patient's current medical condition, clinical course and medical decisions are being made based on guidelines and risk-benefit discussion with patient/family members and/or other providers. Portions of the record may have been created with voice recognition software. Occasional wrong-word or `[id number]?? substitutions may have occurred due to the inherentlimitations of voice recognition software. Read the chart carefully and recognize, using context, where substitutions have occurred. Please call if questions arise. Cuauhtemoc Tan MD IC HEALTH ADMINISTRATOR documented in this encounter Miscellaneous Notes * Patient Instructions - Cuauhtemoc Tan MD - 11/05/2025 10:51 AM PUBLIC HEALTH ADMINISTRATOR Heart-Healthy Diet: Care Instructions Your Care Instructions untitled image A heart-healthy diet has lots of vegetables, fruits, nuts, beans, and whole grains, and is low in salt. It limits foods that are high in saturated fat, such as meats, cheeses, and fried foods. It maybe hard to change your diet,but even small changes can lower your risk of heart attack and heart disease. Follow-up care is a sutton part of your treatment and safety. Be sure to make and go to all appointments, and call your doctor if you are having problems. It's also a good idea to know your test resultsand keep alist of the medicines you take. How can you care for yourself at home? Watch your portions Use food labels to learn what the recommended servings are for the foods you eat. Eat only the number of calories you need to stay at a healthy weight. If you need to lose weight, eat fewer calories than your body scott (through exercise and other physical activity). Eat more fruits and vegetables Eat a variety of fruit and vegetables every day. Dark green, deep orange, red, or yellow fruits andvegetables are especially good for you. Examples include spinach, carrots, peaches, and berries. Keep carrots, celery, and other veggies handy for snacks. Buy fruit that is in season and store it where you can see it so that you will be tempted to eat it. Cook dishes that have a lot of veggies in them, such as stir-fries and soups. Limit saturated fat Read food labels, and try to avoid saturated fats. They increase your risk of heart disease. Use olive or canola oil when you cook. Bake, broil, grill, or steam foods instead of frying them. Choose lean meats instead of high-fat meats such as hot dogs and sausages. Cut off all visible fat when you prepare meat. Eat fish, skinless poultry, and meat alternatives such as soy products instead of high-fat meats. Soy products, such as tofu, may be especially good for your heart. Choose low-fat or fat-free milk and dairy products. Eat foods high in fiber Eat a variety of grain products every day. Include whole-grain foods that have lots of fiber and nutrients. Examples of whole-grain foods include oats, whole wheat bread, and brown rice. Buy whole-grain breads and cereals, instead of white bread or pastries. Limit salt and sodium Limit how much salt and sodium you eat to help lower your blood pressure. Taste food before you salt it. Add only a little salt when you think you need it. With time, your taste buds will adjust to less salt. Eat fewer snack items, fast foods, and other high-salt, processed foods. Check food labels for the amount of sodium in packaged foods. Choose low-sodium versions of canned goods (such as soups, vegetables, and beans). Limit sugar Limit drinks and foods with added sugar. These include candy, desserts, and soda pop. Limit alcohol Limit alcohol to no more than 2 drinks a day for men and 1 drink a day for women. Too much alcohol can cause health problems. When should you call for help? untitled imageWatch closely for changes in your health, and be sure to contact your doctor if: You would like help planning heart-healthy meals. Where can you learn more? Go to https://www.[employer].net/patiented Enter V137 in the search box to learn more about Heart-Healthy Diet: Care Instructions. Current as of: July 22, 2021 Content Version: 13.3 ?? [employer]. Care instructions adapted under license by your healthcare professional. If you have questions about a medical condition or this instruction, always ask your healthcare professional. These instructions may not represent the values of this healthcare organization. [employer] disclaims any warranty or liability for your use of this information. IC HEALTH ADMINISTRATOR documented in this encounter Plan of Treatment Upcoming Encounters Date Type Department Care Team (Late st Contact Info) Description 11/22/2025 11:00 AM PUBLIC HEALTH ADMINISTRATOR Appointment [facility] [address] [place] [phone] Cuauhtemoc Tan MD [address] [facility] [address] [place] [phone] 11/25/2025 11:30 AM PUBLIC HEALTH ADMINISTRATOR Appointment [facility] Nuclear Medicine [address] [place] [address] Cuauhtemoc Tan MD [address] [facility] [address] [place] [phone] 11/25/2025 12:00 PM PUBLIC HEALTH ADMINISTRATOR Appointment [facility] Nuclear Medicine [address] [place] [address] Cuauhtemoc Tan MD [address] [facility] [address] [place] [phone] 12/10/2025 10:40 AM PUBLIC HEALTH ADMINISTRATOR Office Visit [facility] [address] [phone] Danny Duckworth MD [address] [phone] 12/16/2025 11:10 AM PUBLIC HEALTH ADMINISTRATOR Appointment [facility] Laboratory Services [address] [facility] 2 [place] [address] Everett Tavarez MD [address] [place] [phone] 12/23/2025 10:00 AM PUBLIC HEALTH ADMINISTRATOR Office Visit [facility] [place] [address] [address] Everett Tavarez MD [address] [address] 03/19/2026 10:00 AM CDT Office Visit [facility] [address] [phone] Danny Duckworth MD [address] [place] [phone] 05/07/2026 2:20 PM CDT Office Visit [facility] [address] [facility] [address] [place] [address] Nathan Nash, ANGELA [address] [place] [address] Scheduled Orders Name Type Priority Associated Diagnoses Order Schedule ECHO COMPLETE - CONTRAST AND STRAIN IF INDICATED Echocardiogram Routine Other forms of angina pectoris Shortness of breath Hypertension, essential Mixed hyperlipidemia ASHD (arteriosclerotic heart disease) Tobacco use Stage 3a chronic kidney disease (CMS/HCC) Morbid obesity (CMS/HCC) Expected: 11/05/2025, Expires: 05/06/2027 NM MYOCARD PERF IMAG SPECT MULT Electrophysiology Routine Other forms of angina pectoris Shortness of breath Hypertension, essential Mixed hyperlipidemia ASHD (arteriosclerotic heart disease) Tobacco use Stage 3a chronic kidney disease (CMS/HCC) Morbid obesity (CMS/HCC) 1 Occurrences starting 11/05/2025 until 11/05/2026 NM PHARMACOLOGICAL STRESS TEST Electrophysiology Routine Other forms of angina pectoris Shortness of breath Hypertension, essential Mixed hyperlipidemia ASHD (arteriosclerotic heart disease) Tobacco use Stage 3a chronic kidney disease (CMS/HCC) Morbid obesity (CMS/HCC) 1 Occurrences starting 11/05/2025 until 11/05/2026 documented as of this encounter Procedures Procedure Name Priority Date/Time Associated Diagnosis Comments EKG 12-LEAD Routine 11/05/2025 11:15 AM PUBLIC HEALTH ADMINISTRATOR Hypertension, unspecified type documented in this encounter Visit Diagnoses Diagnosis Other forms of angina pectoris- Primary Shortness of breath Hypertension, essential Unspecified essential hypertension Mixed hyperlipidemia ASHD (arteriosclerotic heart disease) Coronary atherosclerosis of unspecified type of vessel, [place] or graft Tobacco use Tobacco use disorder Stage 3a chronic kidney disease (CMS/HCC) Morbid obesity (CMS/HCC) Morbid obesity documented in this encounter Care Teams Incident Analyst Relationship Specialty Start Date End Date Danny Duckworth MD [address] [place] [phone] PCP - General Family Practice 03/06/24 documented as of this encounter
[2025-11-09 10:40] VITALS: BP 134/54; PULSE 77; RESP 22; TEMP 36.4; O2SAT 94; BMI 40.6
--- OUTSIDE RECORDS SUMMARY | 2025-11-09 10:41 | XMS_ITS | Encounter Summary ---
Author Organization [facility] Address [address] [place] [address] Care Team Providers Care Track Repair Person Name Role Phone Danny Duckworth MD Primary Care Provider [phone] Encounter Details Date Type Department Care Team (Latest Contact Info) Description 09/18/2025 Results Follow-Up [facility] Family Medicine [place] [address] [address] Danny Duckworth MD [address] [phone] CBC WITHOUT DIFFERENTIAL Social History Tobacco Use Types Packs/Day Years [...] on file Legal Sex Female 9:51 AM CUTTER OPERATOR Gender Identity Not on file Sexual Orientation Not on file documented as of this encounter Plan of Treatment Upcoming Encounters Date Type Department Care Team (Late st Contact Info) Description 11/22/2025 11:00 AM CUTTER OPERATOR Appointment [facility] Ultrasound [place] [address] [place] [address] Cuauhtemoc Tan MD [address] [facility] [address] [place] [address] 11/25/2025 11:30 AM CUTTER OPERATOR Appointment [facility] Nuclear Medicine [address]35 [place] [address] Cuauhtemoc Tan MD [address] [facility] [address] [place] [phone] 11/25/2025 12:00 PM CUTTER OPERATOR Appointment [facility] Nuclear Medicine [facility] [place] [address] Cuauhtemoc Tan MD 1235 [facility] [address] [place] [phone] 12/10/2025 10:40 AM CUTTER OPERATOR Office Visit [address] [address] Danny Duckworth MD [address] [place] [phone] 12/16/2025 11:10 AM CUTTER OPERATOR Appointment [facility] Laboratory Services [address] [address] Everett Tavarez MD [address] [place] [address] [address] 12/23/2025 10:00 AM CUTTER OPERATOR Office Visit [facility] [place] [address] [place], [place] [address] [address] Everett Tavarez MD [address] [place] [address] [address] 03/19/2026 10:00 AM CDT Office Visit [facility] [address] [phone] Danny Duckworth MD [address] [phone] 05/07/2026 2:20 PM CDT Office Visit [facility] [address] [place] [address] [facility] [address] [facility] [address] [place] [address] documented as of this encounter Visit Diagnoses Not on filedocumented in this encounter Care Teams Track Repair Person Relationship Specialty Start Date End Date Danny Duckworth MD [address] [phone] PCP - General Family Practice 03/06/24 documented as of this encounter
--- OUTSIDE RECORDS SUMMARY | 2025-11-09 10:41 | XMS_ITS | Clinical Summary ---
Author Organization [facility] Address [address] [place] [address] [place] [address] Phone Care Team Providers Care Fishing Manager Name Role Phone Ciera Torres DO Primary Care Provider [phone] Allergies Active Allergy Reactions Criticality Noted Date Comments Clindamycin Rash,Itching Low 02/10/2016 Latex Rash Low 05/11/2019 After prolonged exposure. Naproxen Sodium Swelling Low 02/16/2012 Medications citalopram (CELEXA) 40 mg Oral tablet Take 40 mg by mouth daily production superintendent hydro . Active calcium carbonate + vitamin D (CALTRATE+D) 600 mg(1,500mg) -400 unit Oral Tab Take 1 Tab by mouth daily. Active loratadine (CLARITIN) 10 mg tablet Take 10 mg by mouth daily. Active multivitamin (DAILY-ANDRES) tablet Take 1 Tablet by mouth daily before breakfast. Active CHOLECALCIFEROL , VITAMIN D3, (D3-2000 ORAL) Take 1 Tablet by mouth daily . Active omega-3 fatty acids-fish oil 300-1,000 mg Capsule Take 1 Capsule by mouth daily . Active esomeprazole (NexIUM) 20 mg Capsule, Delayed Release(E.C.) Take 20 mg by mouth daily before breakfast. Active albuterol HFA 90 mcg inhaler Take 2 Puffs by inhalation every 6 hours as needed for Shortness of Breath. Active lisinopril (PRINIVIL) 10 mg tablet Take 10 mg by mouth 2 times daily. Active hydroCHLOROthia zide 25 mg tablet 1 Active Active Problems Problem Noted Date Diagnosed Date Status post total replacement of left hip 2016 Left direct anterior FAB- Douc[place] 02/18/201602/16 Tobacco use 02/11/2016 Preoperative general physical examination 2015 Dyshidrotic eczema 02/11/2016 Overweight (BMI 25.0-29.9) 02/11/2016 Primary osteoarthritis of left hip 02/10/2016 Left hip pain 02/10/2016 Depression Anxiety COPD (chronic obstructive pulmonary disease) GERD (gastroesophageal reflux disease) Hypothyroidism Osteoporosis Resolved Problems Problem Noted Date Diagnosed Date Resolved Date Osteoarthritis of right hand 08/24/2012 02/11/2016 Night sweats 02/11/2016 Injury of back 02/11/2016 Family History Medical History Relation Name Comments Diabetes Brother 1 Ellyn Heart Disease Brother 1 Ellyn Cancer Brother 2 Christopher esophageal, smo ker Healthy Daughter Selin Heart Disease Father Kidney Disease Father Cancer Mother cervical Cancer Sister 1 Tiffanie cervical Healthy Sister 2 Patricia Healthy Baldemar Roldan Relation Name Status Comments Brother 1 Ellyn Alive Brother 2 Christopher Alive Daughter Selin Alive Father Alive Mother (Age 58) Sister 1 Tiffanie Alive Sister 2 Patricia Alive Son Jamar Alive Social History Tobacco Use Types Packs/Day Years Used Date Smoking Tobacco: Every Day Cigarettes 1 32 Smokeless Tobacco: Never Alcohol Use Standard Drinks/Week Comments Yes 0 (1 standard drink = 0.6 oz pur e alcohol) a shot a day Comments No Sex and Gender Information Value Date Recorded Sex Assigned at Not on file Legal Sex Female 1:20 PM CNC TECHNICIAN Gender Identity Not on file Sexual Orientation Not on file Last Filed Vital Signs Vital Sign Reading Time Taken Comments Blood Pressure 122/78 04/29/2021 9:24 AM CDT Pulse 85 03/23/2021 12:34 PM CDT Temperature 36.9 C (98.5 F) 03/23/2021 12:13 PM CDT Respiratory Rate 16 03/23/2021 12:34 PM CDT Oxygen Saturation 98% 03/23/2021 12:34 PM CDT Inhaled Oxygen Concentration - - Weight 94.8 kg (209 lb) 04/29/2021 9:24 AM CDT Height 157.5 cm (5' 2 ) 04/29/2021 9:24 AM CDT Body Mass Index 38.23 04/29/2021 9:24 AM CDT Plan of Treatment Health Maintenance Due Date Last Done Comments DTAP/TDAP/TD VACCINES (1 - Tdap) 1979 PNEUMOCOCCAL VACCINE 50+ YEARS (1 of 2 - PCV) 08/17/19 79 BREAST CANCER SCREENING 2000 COLORECTAL SCREENING 2005 Colorectal Cancer Screening 2005 FIT-DNA Q 3 years 2005 FIT/FOBT Q 1 year 2005 Flex Sig/CT Colonography Q 5 years 2005 RSV VACCINE (60+ or ) (1 - Risk 50-74 years 1-dose series) 2010 ZOSTER VACCINE (1 of 2) 2010 INFLUENZA VACCINE (#1) 2025 OSTEOPOROSIS SCREENING 2025 Medical Devices Implanted Type Area Air Brakes Inspector Device Identifier Shelf Expiration Date Model / Serial / Lot [place] 4.75/5.5 Shoulder Kit Speedbridge [id number] - [id number] Implanted:05/11 by Jv Jay MD at [facility] (Quantity not on file) [place] Right: Shoulder [employer] 12/14/2020 AR-[id number] S-5 / / [id number] [place] Sut 4.97v38dy Bio-Com Swivelckk-C Dbl #2tw [id number] - [id number] Implanted:05/11 by Jv Jay MD at [facility] (Quantity not on file) [place] Right: Shoulder [employer] 12/14/2020 AR-2324BC C-2 / / [id number] [place] Sut 4.75x24.5mm Bio-Com Swivelckk Sp Ar-2324bcm - [id number] Implanted:05/11 by Jv Jay MD at [facility] (Quantity not on file) [place] Right: Shoulder [employer] 12/14/2020 AR-2324BC M / / [id number] [place] Sut 4.73a37hf Bio-Com Swivelckk-C Dbl #2tw [id number] - [id number] Implanted:05/11 by Jv Jay MD at [facility] (Quantity not on file) [place] Right: Shoulder [employer] 02/11/2021 AR-2324BC C-2 / / [id number] Plug Hole Dome 3603-2015-1 - [id number] Implanted:Qty: 1 on 02/18/2016 by Darian Pizarro MD at [facility] Hip Left: Hip [employer] 01/17/2021 -1 / / [id number] Shell Trdnt Gunner Clstr 502-11-48d - [id number] Implanted:Qty: 1 on 02/18/2016 by Darian Pizarro MD at [facility] Hip Left: Hip [employer] 11/19/2020 502-11-48 D / / [id number] Liner Trdnt X3 Poly 0d 623-00-36d - [id number] Implanted:Qty: 1 on 02/18/2016 by Darian Pizarro MD at [facility] Hip Left: Hip [employer] 10/19/2020 623-00-36 D / / [id number] Stem Fem Accld Ii 127d Sz3 [id number] - [id number] Implanted:Qty: 1 on 02/18/2016 by Darian Pizarro MD at [facility] Hip Left: Hip [employer] 08/19/2020 5153-8197 / / [id number] Head Fem V40 [employer] Delta 6570-0-536 - [id number] Implanted:Qty: 1 on 02/18/2016 by Darian Pizarro MD at [facility] Hip Left: Hip [employer] 11/19/2020 6570-0-53 6 / / [id number] Screw Canc 6.5x25mm 6287-3664 - [id number] Implanted:Qty: 1 on 02/18/2016 by Darian Pizarro MD at [facility] Screw Left: Hip [employer] 12/20/2020 5496-2167 -1 / / [id number] Insurance [employer] CHOICE POS VISION SERVICE PLAN BCBS WORKERS COMP RX SERVRX Commercial [employer] WORKERS COMP Advance Directives For more information, please contact: [phone] * Full Code (Latest Code Status on File) Date Activated Date Inactivated Comments 05/11/2019 6:59 AM 05/11/2019 2:26 PM * Full Code Date Activated Date Inactivated Comments 02/18/2016 11:41 AM 02/19/2016 4:55 PM * Full Code Date Activated Date Inactivated Comments 02/18/2016 7:46 AM 02/18/2016 11:41 AM * Full Code Date Activated Date Inactivated Comments 02/18/2016 6:10 AM 02/18/2016 7:46 AM Care Teams Fishing Manager Relationship Specialty Start Date End Date Ciera Torres DO [address] [facility] [place] [address] PCP - General Family Practice 02/18/16
--- OUTSIDE RECORDS SUMMARY | 2025-11-09 10:41 | XMS_ITS | Encounter Summary ---
Author Organization [facility] Address [address] [place] [address] Care Team Providers Care Clubhouse Manager Name Role Phone Danny Duckworth MD Primary Care Provider [phone] Encounter Details Date Type Department Care Team (Late st Contact Info) Description 11/05/2025 External Device Data [place] ABSTRACTION Provider, Abstract NO ADDRESS ON FILE Social History Tobacco Use Types Packs/Day Years [...] on file Legal Sex Female 9:51 AM VENEER JOINTER OFFBEARER Gender Identity Not on file Sexual Orientation Not on file documented as of this encounter Plan of Treatment Upcoming Encounters Date Type Department Care Team (Late Contact Info) Description 11/22/2025 11:00 AM VENEER JOINTER OFFBEARER Appointment [facility] Ultrasound [place] [address] [place] [address] Cuauhtemco Tan MD [address] [place] [address] 11/25/2025 11:30 AM VENEER JOINTER OFFBEARER Appointment [facility] Nuclear Medicine [address] [place] [address] Cuauhtemoc Tan MD [address] [place] [address] 11/25/2025 12:00 PM VENEER JOINTER OFFBEARER Appointment [facility] Nuclear Medicine [address] [place] [address] Cuauhtemoc Tan MD [address] [facility] [address] [place] [address] 12/10/2025 10:40 AM VENEER JOINTER OFFBEARER Office Visit [address] [address] Danny Duckworth MD [address] [place] [phone] 12/16/2025 11:10 AM VENEER JOINTER OFFBEARER Appointment [facility] Laboratory Services [address] [place] [address] [address] Everett Tavarez MD S [address] [address] 12/23/2025 10:00 AM VENEER JOINTER OFFBEARER Office Visit [facility] Cancer and Hematology [place] [address] [address] Evreett Tavarez MD [facility] S [address] [address] 03/19/2026 10:00 AM CDT Office Visit [address] [address] Danny Duckworth MD [address] [place] [phone] 05/07/2026 2:20 PM CDT Office Visit [facility] [address] [facility] [address] [place] [address] [facility] [address] [facility] [address] [place] [address] documented as of this encounter Visit Diagnoses Not on filedocumented in this encounter Care Teams Clubhouse Manager Relationship Specialty Start Date End Date Danny Duckworth MD [address] [place] [phone] PCP - General Family Practice 03/06/24 documented as of this encounter
--- OUTSIDE RECORDS SUMMARY | 2025-11-09 10:41 | XMS_ITS | Encounter Summary ---
Author Organization [facility] Address [address] [place] [address] Care Team Providers Care Buhr Mill Operator Name Role Phone Ciera Torres DO Primary Care Provider [phone] Reason for Referral * Consult for Advice and Opinion (Routine) - Closed Specialty Diagnoses / Procedures Referred By Morenita t Referred To Contact Occupational Medicine Diagnoses Acute pain of right shoulder Encounter related to worker's compensation claim Sirisha Treviño NP Phone: tel: fax: Ze Choi MD Phone: tel: fax: Referral ID Status Reason Start Date Expiration Date Visits Re quested Visits Authorized [id number] Closed 04/02/2019 04/01/2020 1 1 Encounter Details Date Type Department Care Team (Late st Contact Info) Description 04/02/2019 Telephone [facility] Occupational Medicine [address] [place] [phone] Sirisha Treviño NP [address] [address] Social History Tobacco Use Types Packs/Day Years Used Date Smoking Tobacco: Every Day Cigarettes 1 25 Smokeless Tobacco: Never Alcohol Use Standard Drinks/Week Comments Yes 0 (1 standard drink = 0.6 oz pur e alcohol) twice a month Comments No Sex and Gender Information Value Date Recorded Sex Assigned at Not on file Legal Sex Female 1:20 PM RESEARCH HOME ECONOMIST Gender Identity Not on file Sexual Orientation Not on file documented as of this encounter Plan of Treatment Scheduled Referrals Name Type Priority Associated Diagnoses Orde r Schedule AMB REFERRAL TO OCCUPATIONAL MEDICINE Outpatient Referral Routine Acute pain of right shoulder Encounter related to worker's compensation claim Ordered: 04/02/2019 documented as of this encounter Visit Diagnoses Diagnosis Acute pain of right shoulder- Primary Encounter related to worker's compensation claim documented in this encounter Care Teams Buhr Mill Operator Relationship Specialty Start Date End Date Ciera Torres DO [address] [address] PCP - General Family Practice 02/18/16 documented as of this encounter
--- OUTSIDE RECORDS SUMMARY | 2025-11-09 10:41 | XMS_ITS | Encounter Summary ---
Author Organization [facility] Address [address] [place] [address] Care Team Providers Care Sand Cleaning Machine Operator Name Role Phone Danny Duckworth MD Primary Care Provider [phone] Encounter Details Date Type Department Care Team ([facility] Contact Info) Description 09/19/2025 Results Follow-Up [facility] Family Medicine [facility] [address] [address] Danny Duckworth MD [address] [address] MICROALBUMIN/CREATIN INE RATIO, RANDOM UR, HEMOGLOBIN A1C Social History Tobacco Use Types Packs/Day Years [...] on file Legal Sex Female 9:51 AM STOKER ERECTOR AND SERVICER Gender Identity Not on file Sexual Orientation Not on file documented as of this encounter Plan of Treatment Upcoming Encounters Date Type Department Care Team (Late Contact Info) Description 11/22/2025 11:00 AM STOKER ERECTOR AND SERVICER Appointment [facility] Ultrasound [place] [address] [place] [address] Cuauhtemoc Tan MD [address] [place] [address] 11/25/2025 11:30 AM STOKER ERECTOR AND SERVICER Appointment [facility] [address] [place] [address] Cuauhtemoc Tan MD [address] [place] [address] 11/25/2025 12:00 PM STOKER ERECTOR AND SERVICER Appointment [facility] [address] [place] [phone] Cuauhtemoc Tan MD [address] [place] [phone] 12/10/2025 10:40 AM STOKER ERECTOR AND SERVICER Office Visit [facility] [address] [phone] Danny Duckworth MD [address] [phone] 12/16/2025 11:10 AM STOKER ERECTOR AND SERVICER Appointment [facility] Laboratory Services [address] [address] Everett Tavarez MD [address] [address] 12/23/2025 10:00 AM STOKER ERECTOR AND SERVICER Office Visit [facility] Cancer and Hematology [place] [address] [address] Everett Tavarez MD [address] [place] [phone] 03/19/2026 10:00 AM CDT Office Visit [facility] [address] [phone] Danny Duckworth MD [address] [phone] 05/07/2026 2:20 PM CDT Office Visit [facility] [address] [facility] [address] [place] [address] [facility] [address] [facility] [address] [place] [address] documented as of this encounter Visit Diagnoses Not on filedocumented in this encounter Care Teams Sand Cleaning Machine Operator Relationship Specialty Start Date End Date Danny Duckworth MD [address] [place] [phone] PCP - General Family Practice 03/06/24 documented as of this encounter
--- OUTSIDE RECORDS SUMMARY | 2025-11-09 10:41 | XMS_ITS | Encounter Summary ---
Author Organization [facility] Address 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 Gender Identity Not on file Sexual Orientation Not on file documented as of this encounter Plan of Treatment Upcoming Encounters Date Type Department Care Team (Late Contact Info) Description 11/22/2025 11:00 AM VETERINARY LABORATORY DIAGNOSTICIAN Appointment [facility] Ultrasound [place] [address] [place] [address] Cuauhtemoc Tan MD [address] [place] [phone] 11/25/2025 11:30 AM VETERINARY LABORATORY DIAGNOSTICIAN Appointment [facility] Nuclear Medicine [address] [place] [address] Cuauhtemoc Tan MD [address] [place] [phone] 11/25/2025 12:00 PM VETERINARY LABORATORY DIAGNOSTICIAN Appointment [facility] Nuclear Medicine [facility] [place] [address] Cuauhtemoc Tan MD [address] [place] [phone] 12/10/2025 10:40 AM VETERINARY LABORATORY DIAGNOSTICIAN Office Visit [facility] [address] [phone] Danny Duckworth MD [address] [phone] 12/16/2025 11:10 AM VETERINARY LABORATORY DIAGNOSTICIAN Appointment [facility] Laboratory Services [address] [address] Everett Tavarez MD [address] [address] 12/23/2025 10:00 AM VETERINARY LABORATORY DIAGNOSTICIAN Office Visit [facility] Cancer and Hematology [place] [address] [address] Everett Tavarez MD [address] [place] [phone] 03/19/2026 10:00 AM CDT Office Visit [facility] [address] [phone] Danny Duckworth MD [address] [phone] 05/07/2026 2:20 PM CDT Office Visit [facility] [address] [facility] [address] [place] [phone] [facility] [address] [facility] [address] [place] [phone] documented as of this encounter Visit Diagnoses Not on filedocumented in this encounter Care Teams Vulcanizing Press Operator Relationship Specialty Start Date End Date Danny Duckworth MD [address] [place] [phone] PCP - General Family Practice 03/06/24 documented as of this encounter
--- OUTSIDE RECORDS SUMMARY | 2025-11-09 10:41 | XMS_ITS | Encounter Summary ---
Author Organization [facility] Address 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 Gender Identity Not on file Sexual Orientation Not on file documented as of this encounter Plan of Treatment Upcoming Encounters Date Type Department Care Team (Late Contact Info) Description 11/22/2025 11:00 AM STOCK SELECTOR Appointment [facility] Ultrasound [place] [address] [place] [address] Cuauhtemoc Tan MD [address] [place] [phone] 11/25/2025 11:30 AM STOCK SELECTOR Appointment [facility] Nuclear Medicine [address] [place] [address] Cuauhtemoc Tan MD [address] [place] [address] 11/25/2025 12:00 PM STOCK SELECTOR Appointment [facility] Nuclear Medicine [address] [place] [address] Cuauhtemoc Tan MD [address] [facility] [address] [place] [phone] 12/10/2025 10:40 AM STOCK SELECTOR Office Visit [address] [phone] Danny Duckworth MD [address] [place] [phone] 12/16/2025 11:10 AM STOCK SELECTOR Appointment [facility] Laboratory Services [address] [employer] [address] [phone] Everett Tavarez MD [address] [address] 12/23/2025 10:00 AM STOCK SELECTOR Office Visit [facility] Cancer and Hematology [place] [address] [address] Everett Tavarez MD [facility] [address] [address] 03/19/2026 10:00 AM CDT Office Visit [address] [address] Danny Duckworth MD [address] [place] [phone] 05/07/2026 2:20 PM CDT Office Visit [facility] [address] [facility] [address] [place] [address] [facility] [address] [facility] [address] [place] [address] documented as of this encounter Visit Diagnoses Not on filedocumented in this encounter Care Teams Braiding Machine Tender Relationship Specialty Start Date End Date Danny Duckworth MD [address] [place] [phone] PCP - General Family Practice 03/06/24 documented as of this encounter
--- NOTE | 2025-11-09 10:42 | XRR_ITS ---
PROCEDURE INFORMATION: Exam: XR Chest Exam date and time: 11/09/2025 11:16 AM Age: 65 years old Clinical indication: Shortness of breath; TECHNIQUE: Imaging protocol: Radiologic exam of the chest. Views: 1 view. COMPARISON: No relevant prior studies available. FINDINGS: Lungs: Lungs are well aerated. Pulmonary vascularity is normal. No suspicious pulmonary nodule/s. No focal consolidation is appreciated. Pleural spaces: No pleural effusion. No pneumothorax. Heart/Mediastinum: Unremarkable. No cardiomegaly. Bones/joints: Surgical tendon anchors in the right humeral head. Degenerative changes are seen throughout the mid to lower thoracic spine. No fractures are appreciated. XR/XR chest 1V portable [id number] IMPRESSION: No acute cardiopulmonary disease.
--- OUTSIDE RECORDS SUMMARY | 2025-11-09 10:42 | XMS_ITS | Clinical Summary ---
Author Organization [facility] on Address [address] [place] [address] Phone Care Team Providers Care Regulatory Submissions Specialist Name Role Phone Danny Duckworth MD Primary Care Provider [phone] Allergies Active Allergy Reactions Criticality Noted Date Comments Clindamycin Rash,Itching Low 02/10/2016 Latex Rash Low 05/11/2019 After prolonged exposure. Naproxen Sodium Swelling Low 02/16/2012 Sulfa (Sulfonamide Antibiotics) Diarrhea High 07/31/2021 Sulfamethoxazole-Trimethop rim Rash Low 06/05/2024 Medications albuterol HFA 90 mcg inhaler Take 2 Puffs by inhalation every 6 hours as needed for Shortness of Breath. 019 Active multivitamin (DAILY-ANDRES) tablet Take 1 Tablet by mouth daily before breakfast. 016 Active loratadine (CLARITIN) 10 mg tablet Take 10 mg by mouth daily. 016 Active calcium carbonate + vitamin D (CALTRATE+D) 600 mg-10 mcg (400 unit) Tablet Take 1 Tablet by mouth daily. Active rOPINIRole (REQUIP) 0.5 mg tabletIndications :Restless legs TAKE ONE TABLET BY MOUTH DAILY AT BEDTIME 100 Tablet 3 025 Active clopidogreL (PLAVIX) 75 mg Tablet Take 1 Tablet (75 mg) by mouth daily. 90 Tablet 3 025 Active citalopram (CeleXA) 40 mg tabletIndications :Current mild episode of major depressive disorder, unspecified whether recurrent TAKE ONE TABLET BY MOUTH EVERY DAY 100 Tablet 1 025 Active blood sugar diagnostic (Blood Glucose Test) StripIndications: Type 2 diabetes mellitus without complication, without long-term current use of insulin (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 135 Lozenge 2 025 Active Additional Information Patient not taking.Reported on 11/05/2025 melatonin 5 mg Tablet Take 5 mg by mouth nightly as needed for Insomnia. Active ascorbic acid (VITAMIN C) 500 mg Tablet, Chewable Take 500 mg by mouth. Active rosuvastatin (CRESTOR) 10 mg tabletIndications :Mixed hyperlipidemia Take 1 Tablet (10 mg) by mouth daily. 100 Tablet 3 025 Active metFORMIN (GLUCOPHAGE) 500 mg tabletIndications :Prediabetes Take 1 Tablet (500 mg) by mouth 2 times daily. 200 Tablet 3 025 Active losartan (COZAAR) 50 mg tabletIndications :Primary hypertension Take 1 Tablet (50 mg) by mouth daily. 100 Tablet 3 025 Active hydroCHLOROthiazi de 25 mg tabletIndications :Primary hypertension Take 1 Tablet (25 mg) by mouth daily. 100 Tablet 3 025 Active pantoprazole (PROTONIX) 40 mg Tablet, Delayed Release (E.C.)Indications :Gastroesophageal reflux disease, unspecified whether esophagitis present TAKE 1 TABLET BY MOUTH DAILY 100 Tablet 3 025 Active metoprolol succinate (TOPROL XL) 25 mg Extended Release 24 hour tablet Take 1 Tablet (25 mg) by mouth daily. 90 Tablet 3 025 Active pantoprazole (PROTONIX) 40 mg Tablet, Delayed Release (E.C.)Indications :Gastroesophageal reflux disease, unspecified whether esophagitis present TAKE 1 TABLET BY MOUTH DAILY 100 Tablet 1 025 2024 Discontinued Active Problems Problem Noted Date Diagnosed Date Other forms of angina pectoris 11/05/2025 Shortness of breath 11/05/2025 Hypertension, essential 11/05/2025 ASHD (arteriosclerotic heart disease) 11/05/2025 Stage 3a chronic kidney disease 09/17/2025 Morbid obesity 09/17/2025 Ingrown toenail of both feet 09/17/2025 Prediabetes 06/05/2024 Iron deficiency anemia due to chronic blood loss 04/20/2024 Elevated liver enzymes 05/27/2021 Left direct anterior FAB- [place] 02/18/201602/16 Tobacco use 02/11/2016 Dyshidrotic eczema 02/11/2016 Left hip pain 02/10/2016 Depression GERD (gastroesophageal reflux disease) Anxiety Osteoporosis HTN (hypertension) Hyperlipidemia Latex sensitivity Current smoker Inflammatory arthritis DDD (degenerative disc disease), lumbar Degenerative lumbar spinal stenosis Resolved Problems Problem Noted Date Diagnosed Date Resolved Date Status post total replacement of left hip 04/07/2017 09/17/2025 Preoperative general physical examination 02/11/2016 01/07/2025 Osteoarthritis of right hand 08/24/2012 02/11/2016 Night sweats 02/11/2016 Injury of back 02/11/2016 COPD (chronic obstructive pulmonary disease) 08/13/2025 Dyspnea on exertion 09/17/20 Preoperative testing 025 Severe obesity (BMI 35.0-39. 9) with comorbidity 08/21/2025 Encounters Date Type Department Care Team Description 11/05/2025 11:15 AM FOUNDER / CEO Office Visit [place] [address] [place] [phone] Everett Tavarez MD [place], Amod, MD Other forms of angina pectoris (Primary Dx); Shortness of breath; Hypertension, essential; Mixed hyperlipidemia; ASHD (arteriosclerotic heart disease); Tobacco use; Stage 3a chronic kidney disease (CMS/HCC); Morbid obesity (CMS/HCC) 11/05/2025 External Device Data STL ABSTRACTION Provider, Abstract 11/05/2025 External Device Data STL ABSTRACTION Provider, Abstract 11/05/2025 Results Follow-Up [place] [id number] [place] [phone] Cuauhtemoc Tan MD EKG 12-LEAD 11/04/2025 9:26 AM FOUNDER / CEO - 11/04/2025 11:59 PM FOUNDER / CEO Hospital Encounter [address] [phone] Zaire Wahl NP Discharge Disposition: Home or Self Care 11/03/[address] [phone] Danny Duckworth MD Gastroesophageal reflux disease, unspecified whether esophagitis present 11/01/2025 9:10 AM FOUNDER / CEO - 11/01/2025 11:59 PM FOUNDER / CEO Hospital Encounter [address] [phone] Zaire Wahl NP Discharge Disposition: Home or Self Care 11/01/2025 Orders Only [place] [id number] [facility] [address] [place] [phone] Cuauhtemoc Tan MD Hypertension, unspecified type (Primary Dx) 10/29/2025 9:15 AM FOUNDER / CEO - 10/29/2025 11:59 PM FOUNDER / CEO Hospital Encounter [address] [phone] Zaire Wahl NP Discharge Disposition: Home or Self Care 10/28/2025 Orders Only [facility] [place] [address] [place] [phone] Blanca Em PHARMACIST 10/24/2025 Orders Only [facility] [place] [address] [place] [phone] Everett Tavarez MD Iron deficiency anemia, unspecified iron deficiency anemia type (Primary Dx); Atherosclerosis of coronary artery, unspecified vessel or lesion type, unspecified whether angina present, unspecified whether the [place] or transplanted heart; Iron deficiency anemia due to chronic blood loss 10/21/2025 8:50 AM FOUNDER / CEO Office Visit [facility] [place] [address] [facility] 2 [place] [phone] Everett Tavarez MD Garton, Danny Lee, NP Iron deficiency anemia due to chronic blood loss (Primary Dx) 10/14/2025 Orders Only Initial Department [address] [place] [address] Dr APARICION: [place] [address] Provider, Historical 09/24/2025 External Device Data STL ABSTRACTION Provider, Abstract 09/24/2025 External Device Data STL ABSTRACTION Provider, Abstract 09/24/2025 External Device Data STL ABSTRACTION Provider, Abstract 09/19/2025 Results Follow-Up [address] [phone] Danny Duckworth MD MICROALBUMIN/CREATININE RATIO, RANDOM UR, HEMOGLOBIN A1C 09/18/2025 Results Follow-Up [address] [phone] Danny Duckworth MD CBC WITHOUT DIFFERENTIAL 09/17/2025 11:00 AM FOUNDER / CEO Office Visit [address] [phone] Danny Duckworth MD Primary hypertension (Primary Dx); Mixed hyperlipidemia; Prediabetes; Morbid obesity (CMS/HCC); Stage 3a chronic kidney disease (CMS/HCC); Iron deficiency anemia due to chronic blood loss; Ingrown toenail of both feet 09/17/2025 Orders Only Initial Department [address] [place] [address] Dr GONSALES: [place] [address] Provider, Historical 09/12/2025 8:43 AM CDT - 09/12/2025 11:59 PM CDT Hospital Encounter [facility] [place] [address] [facility] [address] [place] [address] Zaire Wahl NP Discharge Disposition: Home or Self Care 09/09/2025 8:53 AM CDT - 09/09/2025 11:59 PM CDT Hospital Encounter [facility] [address] [place] [address] Zaire Wahl NP Discharge Disposition: Home or Self Care 09/06/2025 8:49 AM CDT - 09/06/2025 11:59 PM CDT Hospital Encounter [facility] [place] [address] [facility] [address] [place] [address] Zaire Wahl NP Discharge Disposition: Home or Self Care 09/06/2025 8:48 AM CDT - 09/06/2025 11:59 PM CDT Hospital Encounter [facility] [place] [address] [facility] [address] [place] [phone] Zaire Wahl NP Discharge Disposition: Home or Self Care 08/29/2025 Telephone [facility] Orthopedic [address] [phone] Mohan Mosley MD Question 08/27/2025 Telephone [facility] Family Medicine [address] [phone] Danny Duckworth MD Appointment Correction; Patient Communication 08/27/2025 Orders Only [facility] [place] [address] [phone] Zaire Wahl NP Iron deficiency anemia due to chronic blood loss (Primary Dx) 08/27/2025 Orders Only [facility] [place] [address] [phone] Zaire Wahl NP 08/27/2025 Orders Only [facility] [place] [address] [place] [phone] Zaire Wahl NP 08/26/2025 11:00 AM CDT Office Visit [facility] Orthopedic [place] [address] [place] [phone] Mohan Mosley MD Hand pain, right (Primary Dx); Arthritis of carpometacarpal (CMC) joint of right thumb 08/26/2025 10:40 AM CDT Ancillary Procedure [facility] [address] [place] [phone] Mohan Mosley MD Hand pain, right 08/20/2025 External Device Data STL ABSTRACTION Provider, Abstract 08/20/2025 External Device Data STL ABSTRACTION Provider, Abstract 08/20/2025 External Device Data STL ABSTRACTION Provider, Abstract 08/19/2025 3:30 PM CDT Office Visit [facility] [place] [address] [facility] 2 [place] [phone] Everett Tavarez MD Garton, Danny Lee, NP Iron deficiency anemia due to chronic blood loss (Primary Dx) [address] [phone] Danny Duckworth MD Cigarette nicotine dependence without complication; Tobacco use 08/12/2025 10:14 AM CDT - 08/12/2025 11:59 PM CDT Hospital Encounter [facility] Services [address] [phone] Everett Tavarez MD Discharge Disposition: Home or Self Care from Last 3 Months Immunizations Immunization Administration Dates Next Due Td(adult) Unspecified Formulation 04/05/2023,06/2008 Family History Medical History Relation Name Comments Diabetes Brother 1 Ellyn Heart Disease Brother 1 Ellyn Cancer Brother 2 Christopher esophageal, smo ker Healthy Daughter Selin Heart Disease Father Kidney Disease Father Cancer Mother cervical Cancer - Other Mother Cervical Cancer - Other Sister 1 Patricia Cervical CA Healthy Sister 1 Patricia Cancer Sister 2 Tiffanie cervical Healthy Son Jamar Breast Cancer Neg Hx Ovarian Cancer Neg Hx Relation Name Status Comments Brother 1 Ellyn Alive Brother 2 Christopher Alive Daughter Selin Alive Father Alive Mother (Age 58) Sister 1 Patricia Alive Sister 2 Tiffanie Alive Son Jamar Alive Social History Tobacco Use Types Packs/Day Years Used Date Smoking Tobacco: Every Day Cigarettes 1 30 Passive Smoke Exposure: Current Smokeless Tobacco: Never Tobacco Cessation:Ready to Q uit: Not Asked; Counseling Given: Not Answered Alcohol Use Standard Drinks/Week Comments Yes 0 (1 standard drink = 0.6 oz pur e alcohol) socially Feeling Safe Answer Date Recorded Are you in a relationship wi th someone who hurts you emotionally and/or physically? No 06/28/2024 Comments No Sex and Gender Information Value Date Recorded Sex Assigned at Not on file Legal Sex Female 9:51 AM FOUNDER / CEO Gender Identity Not on file Sexual Orientation Not on file Last Filed Vital Signs Vital Sign Reading Time Taken Comments Blood Pressure 130/60 11/05/2025 10:39 AM FOUNDER / CEO Pulse 109 11/05/2025 10:39 AM FOUNDER / CEO Temperature 36.7 C (98.1 F) 11/04/2025 10:10 AM FOUNDER / CEO Respiratory Rate 18 11/04/2025 10:10 AM FOUNDER / CEO Oxygen Saturation 98% 11/04/2025 10:10 AM FOUNDER / CEO Inhaled Oxygen Concentration - - Weight 97.7 kg (215 lb 6.4 oz) 11/05/2025 10:39 AM FOUNDER / CEO Height 156.2 cm (5' 1.5 ) 11/05/2025 10:39 AM CS T Body Mass Index 40.04 11/05/2025 10:39 AM FOUNDER / CEO Plan of Treatment Upcoming Encounters Date Type Department Care Team (Late st Contact Info) Description 11/22/2025 11:00 AM FOUNDER / CEO Appointment [facility] [address] [place] [address] Cuauhtemoc Tan MD [address] [facility] [address] [place] [phone] 11/25/2025 11:30 AM FOUNDER / CEO Appointment [facility] Nuclear [facility] [place] [address] Cuauhtemoc Tan MD [address] [facility] [address] [place] [phone] 11/25/2025 12:00 PM FOUNDER / CEO Appointment [facility] Nuclear Medicine [address] [place] [address] Cuauhtemoc Tan MD [address] [facility] [address] [place] [phone] 12/10/2025 10:40 AM FOUNDER / CEO Office Visit [facility] [address] [phone] Danny Duckworth MD [address] [phone] 12/16/2025 11:10 AM FOUNDER / CEO Appointment [facility] Laboratory Services [address] [facility] 2 [place] [address] Everett Tavarez MD [address] [place] [phone] 12/23/2025 10:00 AM FOUNDER / CEO Office Visit [facility] [place] [address] [phone] Everett Tavarez MD [address] [phone] 03/19/2026 10:00 AM CDT Office Visit [facility] [address] [phone] Danny Duckworth MD [address] [place] [phone] 05/07/2026 2:20 PM CDT Office Visit [facility] [address] [facility] [address] [place] [phone] Nathan Nash, [facility] [address] [facility] [address] [place] [address] Health Maintenance Due Date Last Done Comments PNEUMOCOCCAL VACCINE 50+ YEA RS (1 of 2 - PCV) 1979 FIT-DNA Q 3 years 2005 Flex Sig/CT Colonography Q 5 years 2005 Lung Cancer Screening 2010 RSV VACCINE (60+ or ) (1 - Risk 50-74 years 1-dose series) 2010 ZOSTER VACCINE (1 of 2) 2010 DTAP/TDAP/TD VACCINES (1 - Tdap) 04/06/2023 04/05/20, 07/22/2008 [place] Preventative Visit/Annual Wellness Visit 11/14/2024 FIT/FOBT Q 1 year 04/12/2025 04/12/2024 BREAST CANCER SCREENING 06/14/2025 06/14/2024 INFLUENZA VACCINE (#1) 2025 OSTEOPOROSIS SCREENING 2025 Pre-Diabetes and Diabetes Screening 09/17/2028 09/17/2025, 09/03/2024, 06/05/2024, Additional history exists COLORECTAL SCREENING 06/28/2029 06/28/2024 Colorectal Cancer Screening 06/28/2029 Medical Devices Implanted Type Area Nurse Liaison Device Identifier Shelf Expiration Date Model / Serial / Lot Hoxie 4.75/5.5 Shoulder Kit Speedbridge [id number] - [id number] Implanted:04/15 by Jv Jay MD (Quantity not on file) Hoxie Right: Shoulder [employer] 12/14/2020 AR-2600S BS-5 / / [id number] Hoxie Sut 4.15b02qe Bio-[place] [employer] Swivelckk-C Dbl #2tw [id number] - [id number] Implanted:04/15 by Jv Jay MD (Quantity not on file) Hoxie Right: Shoulder [employer] 12/14/2020 AR-2324B CC-2 / / [id number] Hoxie Sut 4.16b10td Bio-Com Swivelckk-C Dbl #2tw [id number] - [id number] Implanted:04/15 by Jv Jay MD (Quantity not on file) Hoxie Right: Shoulder [employer] 02/11/2021 AR-2324B CC-2 / / [id number] Hoxie Sut 4.75x24.5mm [employer] [employer] Samir Srivastava Ar-2324bcm - [id number] Implanted:04/15 by Jv Jay MD (Quantity not on file) Hoxie Right: Shoulder [employer] 12/14/2020 AR-2324B CM / / [id number] Putty Mastergraft 9.0ml [id number] - [id number] Implanted:Qty: 1 on 06/09/2021 by Khalida Smith MD at [facility] Biological N/A: Back [employer]OR [employer]ANEK [id number] 01/11/2025 [id number] / / [id number] Cage Endoskeleton 0 Cvx Lg [id number] To 8898-5385-N - [id number] Implanted:Qty: 1 on 06/09/2021 by Khalida Smith MD at [facility] Cage N/A: Back [employer]- SOFAMOR DANEK 02/22/2022 3110-261 0-N / / [id number] Cap Creo Loc Thrd 5.5mm 1119.0010 - [id number] Implanted:Qty: 4 on 06/09/2021 by Khalida Smith MD at [facility] End N/A: Back [employer] 06/13/2022 1119.001 0 / / [id number] Hemostatic Surgifoam 1gm 1977 - [id number] Implanted:Qty: 1 on 06/09/2021 by Khalida Smith MD at [facility] Hemostatic N/A: Back [employer] [id number] 12/01/20221977 / / [id number] Head Fem V40 Biolox Delta 6570-0-536 - [id number] Implanted:Qty: 1 on 02/18/2016 by Darian Pizarro MD Hip Left: Hip [employer] 11/19/2020 6570-0-5 36 / / [id number] Liner Trdnt X3 Poly 0d 623-00-36d - [id number] Implanted:Qty: 1 on 02/18/2016 by Darian Pizarro MD Hip Left: Hip [employer] 10/19/2020 623-00-3 6D / / [id number] Plug Hole Dome 8006-3877-1 - [id number] Implanted:Qty: 1 on 02/18/2016 by Darian Pizarro MD Hip Left: Hip [employer] 01/17/20212059-000 0-1 / / [id number] Shell Trdnt Gunner Clstr 502-11-48d - [id number] Implanted:Qty: 1 on 02/18/2016 by Darian Pizarro MD Hip Left: Hip [employer] 11/19/2020 502-11-4 8D / / [id number] Stem Fem Accld Ii 127d Sz3 8970-2745 - [id number] Implanted:Qty: 1 on 02/18/2016 by Darian Pizarro MD Hip Left: Hip [employer] 08/19/2020 6721-033 0 / / [id number] Kurt Creo Ti Crv 5.5x40mm Pa 1119.7040 - [id number] Implanted:Qty: 1 on 06/09/2021 by Khalida Smith MD at [facility] Kurt N/A: Back [employer] 06/13/2022 1119.704 0 / / [id number] Kurt Creo Ti Crv 5.5x45mm Pa 1119.7045 - [id number] Implanted:Qty: 1 on 06/09/2021 by Khalida Smith MD at [facility] Kurt N/A: Back [employer] 06/13/2022 1119.704 5 / / [id number] Screw Canc 6.5x25mm 8134-7455 - [id number] Implanted:Qty: 1 on 02/18/2016 by Darian Pizarro MD Screw Left: Hip [employer] 12/20/2020 5-1 / / [id number] Screw Creo Thrd 6.5x45mm Pa 5119.1647 - [id number] Implanted:Qty: 4 on 06/09/2021 by Khalida Smith MD at [facility] Screw N/A: Back [employer] 06/13/2022 5119.164 7 / / [id number] Paste Allograft + 10ml Syr [id number] - [id number] Implanted:Qty: 1 on 06/09/2021 by Khalida Smith MD at [facility] Tissue N/A: Back [employer] [id number] 10/04/2021 [id number] / / [id number] Procedures Procedure Name Priority Date/Time Associated Diagnosis Comments EKG 12-LEAD Routine 11/05/2025 11:15 AM FOUNDER / CEO Hypertension, unspecified type RETICULOCYTES Routine 10/14/2025 9:58 AM FOUNDER / CEO IRON, TIBC, AND PERCENT SATURATION Routine 10/14/2025 9:58 AM FOUNDER / CEO VITAMIN B12 LEVEL Routine 10/14/2025 9:5 8 AM FOUNDER / CEO CBC WITH DIFFERENTIAL Routine 10/14/2025 9:58 AM FOUNDER / CEO Iron deficiency anemia due to chronic blood loss FOLATE, SERUM Routine 10/14/2025 9:58 AM FOUNDER / CEO Iron deficiency anemia due to chronic blood loss FERRITIN Routine 10/14/2025 9:58 AM FOUNDER / CEO Iron deficiency anemia due to chronic blood loss COMPREHENSIVE METABOLIC PANEL Routine 10/14/2025 9:58 AM FOUNDER / CEO Iron deficiency anemia due to chronic blood loss IRON, TIBC, AND PERCENT SATURATION Routine 10/14/2025 9:58 AM FOUNDER / CEO Iron deficiency anemia due to chronic blood loss LACTATE DEHYDROGENASE Routine 10/14/2025 9:58 AM FOUNDER / CEO Iron deficiency anemia due to chronic blood loss CBC WITHOUT DIFFERENTIAL Routine 09/17/2025 12:19 PM FOUNDER / CEO HEMOGLOBIN A1C Routine 09/17/2025 12:18 PM FOUNDER / CEO Prediabetes MICROALBUMIN/CREATININ E RATIO, RANDOM UR Routine 09/17/2025 11:05 AM FOUNDER / CEO Prediabetes RETICULOCYTES Routine 09/06/2025 9:25 AM CDT Iron deficiency anemia due to chronic blood loss IRON, TIBC, AND PERCENT SATURATION Routine 09/06/2025 9:25 AM CDT Iron deficiency anemia due to chronic blood loss REFERENCE LAB PROCESSING FEE Routine 09/06/2025 9:25 AM CDT Iron deficiency anemia due to chronic blood loss CBC WITH DIFFERENTIAL Stat 09/06/2025 9:25 AM CDT Iron deficiency anemia due to chronic blood loss FERRITIN Stat 09/06/2025 9:25 AM CDT Iron deficiency anemia due to chronic blood loss XR HAND 3+ VW RIGHT Routine 08/26/2025 1 0:45 AM CDT Hand pain, right FERRITIN Stat 08/12/2025 10:19 AM CDT Iron deficiency anemia due to chronic blood loss COMPREHENSIVE METABOLIC PANEL Stat 08/12/2025 10:19 AM CDT Iron deficiency anemia due to chronic blood loss CBC WITH DIFFERENTIAL Stat 08/12/2025 10:19 AM CDT Iron deficiency anemia due to chronic blood loss IRON, TIBC, AND PERCENT SATURATION Routine 08/12/2025 10:14 AM CDT Iron deficiency anemia due to chronic blood loss VITAMIN B12 AND FOLATE Routine 10:14 AM CDT Iron deficiency anemia due to chronic blood loss LACTATE DEHYDROGENASE Routine 08/12/2025 10:14 AM CDT Iron deficiency anemia due to chronic blood loss MAMMO 3D SOFÍA SCREEN BILATERAL MOBILE Routine 06/14/2024 12:26 PM CDT Screening mammogram, encounter for OCCULT BLOOD IMMUNOASSAY, COLORECTAL SCREEN Routine 04/12/2024 12:00 PM CDT Encounter for colorectal cancer screening from Last 3 Months or Most Recently Relevant to Health Maintenance Results * EKG 12-LEAD (11/05/2025 11:15 AM FOUNDER / CEO) Narrative [facility] - 11/05/2025 11:15 AM FOUNDER / CEO Cuauhtemoc Tan MD 11/05/2025 10:55 AM EKG 12-LEAD Date/Time: 11/05/2025 11:15 AM Performed by: Cuauhtemoc Tan MD Authorized by: Cuauhtemoc Tan MD Comments: Sinus tachycardia, nonspecific ST-T wave changes, borderline EKG. Procedure Note Cuauhtemoc Tan MD - 11/05/2025 10:47 AM CST Images from the original note were not included. Cardiology Clinic Note Patient name: Cristal Tamez. [id number] Date of : 1960 Reason for Consultation Referral Subjective: History of Present Illness: Patient Active Problem List Diagnosis Code Left direct anterior FAB- [place] 02/18/2016 M16.12 Left hip pain M25.552 Tobacco [...] Ingrown toenail of both feet L60.0 Cristal Tamez is a 65 y.o. year old female [...] 65-year-old female with past medical Struve hypertension, hyperlipidemia,ASHD (patient mentions she has had blockages in her mesenteric arterystatus post stenting/PAD), COPD, ongoing tobacco abuse, GERD is here toestablish care with cardiology. On further questioning patient mentions that patient has been havingsignificant episodes of chest pain, atypical, pressure-like, substernal,precordial, nonpositional, nonpleuritic, nonpalpable, no aggravating orrelieving factors, no radiation and also has shortness of breath with mildlevels of exertion. Patient denies any presyncopal or syncopalepisodes. To evaluate for above will do echocardiogram, exercise stress test. Iexplained the entire procedures, alternatives in detail with all the riskand benefit involved. I also explained that if any of the testing were tocome abnormal patient may need further invasive/noninvasive testingincluding coronary angiography plus minus PCI versus cardiac CTA versusother modalities. I explained the procedure in detail as well as with allthe risk and benefit involved and the patient is agreeable to move forwardwith the plan. Will request PCP to consider referral to vascular surgery foraforementioned PAD/mesenteric artery issues. Evaluation, management and appropriate referrals for noncardiac etiologiespotentially contributing to patient's presentation will be deferred topatient's PCP. I had an extensive discussion with the patient regardingfurther course of action, necessary testing, emergency precautions andpatient is agreeable with the same. Past Medical History: Past Medical History: Diagnosis Date Anxiety COPD (chronic obstructive pulmonary disease) (CMS/[facility]) Current smoker DDD (degenerative disc disease), [...] COLONOSCOPY performed by Prudencio Samayoa DO at [facility] ENDOSCOPY [place] HX ESOPHAGOGASTRODUODENOSCOPY N/A 06/28/2024 ESOPHAGOGASTRODUODENOSCOPY [facility] [place] [facility] HEMORRHOIDECTOMY 11/2020 HX KNEE SURGERY Left 2014 x2 arthroscopy x 2 scope and graft CO ARTHRODESIS POSTERIOR INTERBODY 1 NTRSPC LUMBAR N/A 06/09/2021 LUMBAR INTERBODY FUSION 1 LEVEL POSTERIOR performed by Khalida Smith MDat [facility] OR CO ARTHRODESIS POSTERIOR/PSTLAT TQ 1NTRSPC LUMBAR N/A 06/09/2021 LUMBAR SPINAL FUSION 1 LEVEL POSTERIOR performed by Khalida Smith MD [facility] OR CO ARTHRODESIS POSTERIOR/PSTLAT TQ 1NTRSPC LUMBAR N/A 06/09/2021 LUMBAR SPINAL FUSION performed by Khalida Smith MD at [facility] OR CO ARTHRP ACETBLR/PROX FEM PROSTC AGRFT/ALGRFT Left 02/18/2016 HIP ARTHROPLASTY TOTAL ANTERIOR APPROACH performed by Darian Pizarro [facility] OR CO DIAGNOSTIC ARTHROSCOPY SHOULDER +- SYNOVIAL BX Right 05/11/2019 SHOULDER ARTHROSCOPY performed by Jv Jay MD at [facility] OR CO ION 1 ON 1 IN OR W/ATTENDANCE EACH 15 MINUTES N/A 06/09/2021 INTRAOPERATIVE NEUROPHYSIOLOGIC MONITORING performed by Khalida Smith MDat [facility] OR CO SURGICAL ARTHROSCOPY GASPER W/CORACOACRM LIGM RLS Right 05/11/2019 SHOULDER ACROMIOPLASTY ARTHROSCOPIC performed by Jv Jay MD at [facility] OR CO SURGICAL ARTHROSCOPY SHOULDER DSTL CLAVICULC Right 05/11/2019 SHOULDER W/ DISTAL CLAVICLE RESECTION ARTHROSCOPIC performed by Jv Jay MD at [facility] OR CO SURGICAL ARTHROSCOPY SHOULDER W/ROTATOR CUFF RPR Right 05/11/2019 SHOULDER ROTATOR CUFF ARTHROSCOPY performed by Jv Jay MDat [facility] OR CO TENODESIS LONG TENDON BICEPS Right 05/11/2019 BICEPS TENODESIS performed by Jv Jay MD at [facility] OR Allergies: Allergies Allergen Reactions Sulfa (Sulfonamide Antibiotics) Diarrhea Clindamycin Rash and Itching Latex Rash After prolonged exposure. Naproxen Sodium Swelling Sulfamethoxazole-Trimethoprim Rash Current Medications: Current Outpatient Medications Medication Sig Dispense Refill pantoprazole (PROTONIX) 40 mg Tablet, Delayed Release (E.C.) TAKE 1TABLET BY MOUTH DAILY 100 Tablet 3 melatonin 5 mg Tablet Take 5 mg by mouth nightly as needed for Insomnia. ascorbic acid (VITAMIN C) 500 mg Tablet, Chewable Take 500 mg by mouth. rosuvastatin (CRESTOR) 10 mg tablet Take 1 Tablet (10 mg) by mouth daily.100 Tablet 3 metFORMIN (GLUCOPHAGE) 500 mg tablet Take 1 Tablet (500 mg) by mouth 2times daily. 200 Tablet 3 losartan (COZAAR) 50 mg tablet Take 1 Tablet (50 mg) by mouth daily. 100Tablet 3 hydroCHLOROthiazide 25 mg tablet Take 1 Tablet (25 mg) by mouth daily.100 Tablet 3 ferrous sulfate 325 mg (65 mg iron) tablet TAKE ONE TABLET BY MOUTH DAILY90 Tablet 3 blood sugar diagnostic (Blood Glucose Test) Strip Use 1 strip to testblood sugar once daily 100 Each 3 clopidogreL (PLAVIX) 75 mg Tablet Take 1 Tablet (75 mg) by mouth daily.90 Tablet 3 citalopram (CeleXA) 40 mg tablet TAKE ONE TABLET BY MOUTH EVERY DAY 100Tablet 1 rOPINIRole (REQUIP) 0.5 mg tablet TAKE ONE TABLET BY MOUTH DAILY ATBEDTIME 100 Tablet 3 calcium carbonate + vitamin D (CALTRATE+D) 600 mg-10 mcg (400 unit)Tablet Take 1 Tablet by mouth daily. albuterol HFA 90 mcg inhaler Take 2 Puffs by inhalation every 6 hours asneeded for Shortness of Breath. multivitamin (DAILY-ANDRES) tablet Take 1 Tablet by mouth daily beforebreakfast. loratadine (CLARITIN) 10 mg tablet Take 10 mg by mouth daily. nicotine polacrilex (NICORETTE) 2 mg lozenge, mini 1 Lozenge (2 mg) byMouth/Throat route every 2 hours as needed for Smoking Cessation. (Patientnot taking: Reported on 11/05/2025) 135 Lozenge 2 No current facility-administered medications for this visit. Facility-Administered Medications Ordered in Other Visits Medication Dose Route Frequency Provider Last Rate Last Admin [COMPLETED] iron sucrose (VENOFER) 300 mg in sodium chloride 0.9 % 250 mLIVPB 300 mg IV ONE time only Zaire Wahl NP Stopped at [DISCONTINUED] sodium chloride flush injection 10 mL 10 mL IV see admininstructions Zaire Wahl NP 10 mL at 11/04/25 1213 [DISCONTINUED] sodium chloride 0.9 % infusion 30-999 mL/hr IV continuousZaire Wahl NP Current Outpatient Medications Medication pantoprazole [...] vitamin D (CALTRATE+D) 600 mg-10 mcg (400 unit)Tablet albuterol HFA 90 mcg inhaler multivitamin (DAILY-ANDRES) [...] socially Drug use: Yes Types: Marijuana Comment: gummies Review of Systems: All 12 systems were reviewed and are negative except pertinent positivesalready dictated under HPI. FH and SH reviewed. Physical Exam: BP 130/60 Pulse (!) 109 Ht 5' 1.5 (1.562 m) Wt 97.7 kg (215 lb6.4 oz) BMI 40.04 kg/m Gen: NAD; Alert and oriented, no acute distress CV: RRR, 1/6 systolic murmur present in precordium, audible s1/s2 Chest: CTAB, non-labored respiration Abdominal: Soft, non-tender, non-distended, normal bowel sounds. Ext: Trace edema LABORATORY: No results for input(s): WBC , HGB , HCT , PLT in the last 72hours. No results for input(s): NA , K [...] , 2HRTROP , DELTA , 6HRTROP in thelast 72 hours. 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 ASSESSMENT AND PLAN: Patient Active Problem List Diagnosis Code Left direct anterior FAB- Tiana 02/18/2016 M16.12 Left hip pain M25.552 Tobacco [...] 65-year-old female with past medical Struve hypertension, hyperlipidemia,ASHD (patient mentions she has had blockages in her mesenteric arterystatus post stenting/PAD), COPD, ongoing tobacco abuse, GERD is here toestablish care with cardiology. On further questioning patient mentions that patient has been havingsignificant episodes of chest pain, atypical, pressure-like, substernal,precordial, nonpositional, nonpleuritic, nonpalpable, no aggravating orrelieving factors, no radiation and also has shortness of breath with mildlevels of exertion. Patient denies any presyncopal or syncopalepisodes. To evaluate for above will do echocardiogram, exercise stress test. Iexplained the entire procedures, alternatives in detail with all the riskand benefit involved. I also explained that if any of the testing were tocome abnormal patient may need further invasive/noninvasive testingincluding coronary angiography plus minus PCI versus cardiac CTA versusother modalities. I explained the procedure in detail as well as with allthe risk and benefit involved and the patient is agreeable to move forwardwith the plan. Will request PCP to consider referral to vascular surgery foraforementioned PAD/mesenteric artery issues. Evaluation, management and appropriate referrals for noncardiac etiologiespotentially contributing to patient's presentation will be deferred topatient's PCP. I had an extensive discussion with the patient regardingfurther course of action, necessary testing, emergency precautions andpatient is agreeable with the same. Anti-Lipid therapies: Will request PCP clinic to help recheck lipid paneland further titrate per guideline directed medical therapy. In addition we will continue with, Aggressive risk factor modification and lifestyle changes. Continue with current guideline directed maximally tolerated aggressivemedical therapy. Current Outpatient Medications Medication pantoprazole (PROTONIX) [...] vitamin D (CALTRATE+D) 600 mg-10 mcg (400 unit)Tablet albuterol HFA 90 mcg inhaler multivitamin (DAILY-ANDRES) tablet loratadine (CLARITIN) 10 mg tablet nicotine polacrilex (NICORETTE) 2 mg lozenge, mini No current facility-administered medications for this visit. Additionally, Keep a blood pressure log and bring it to the next PCP appointment wherefurther titration of blood pressure medications will be performed. Continue to follow with PCP/ other specialists for appropriate managementand treatment of chronic issues. Will request PCP to continue evaluationand workup of noncardiac etiologies contributing to patient's symptoms asdescribed above. Will request the staff/RN to refill all current cardiovascular medicationsand help placing & reviewing orders as discussed above in the plan. Willalso request the assisting staff/RN to go over the plan and education withpatient again. The risks, benefits and alternative of the above management were discussedwith patient and/or family. All questions were answered and with shareddecision making model, above management options are being implemented.Further management based on follow-up. No orders of the defined types were placed in this encounter. I performed a history and physical examination of the patient. I had anextensive discussion with patient (and/or family member and/orsurrogate/POA) about the options of medications, invasive and noninvasiveprocedures as recommended by current guidelines. Patient (and/or familymember and/or surrogate/POA) verbalized understanding of assessment andwillingness to implement the plan as described after understanding therisks and benefits of each. I had extensive discussion with the patientregarding emergency precautions and explained that patient should call 911or go to the nearest ER if any of the symptoms were torecur/progress/worsen including chest pain, shortness of breath alteredmental status, presyncopal or syncopal episodes, palpitations or any otheracute issues patient is agreeable with the same. Portions of this note may have been copied from prior notes /templateshowever appropriate and necessary changes have been made to reflectpatient's current medical condition, clinical course and medical decisionsare being made based on guidelines and risk-benefit discussion withpatient/family members and/or other providers. Portions of the record mayhave been created with voice recognition software. Occasional wrong-wordor `[id number] substitutions may have occurred due to the inherentlimitations of voice recognition software. Read the chart carefully andrecognize, using context, where substitutions have occurred. Please callif questions arise. Cuauhtemoc Tan MD us Cuauhtemoc Tan MD ECG ORDERABLES Final Result [facility] CARDIOLOGY [facility] [phone] [address]) [address] [place] [address], [place] [phone] * FOLATE, SERUM (10/14/2025 9:58 AM FOUNDER / CEO) Pathologist [facility] FOLATE, SERUM >24.0 ng/mL [facility] Comment: Reference Range Low: <3.4 Borderline: 3.4-5.4 Normal: >5.4 Test Performed at: [employer] [place] [address] Zoila La MD Blood 10/14/2025 9:58 AM FOUNDER / CEO 10/14/2025 9:59 AM FOUNDER / CEO Everett Tavarez MD CHEMISTRY ORDERABLES Final Re sult [facility] [phone] [facility] [address] [place] [address] * (ABNORMAL) IRON, TIBC, AND PERCENT SATURATION (10/14/2025 9:58 AM FOUNDER / CEO) Only the most recent of4 resultswithin the time period is included. Pathologist [facility] IRON 28(L) 45 - 160 mcg/dL [facility] TIBC 465(H) 250 - 450 mcg/dL (calc) [facility] IRON % SATURATION 6(L) 16 - 45 % (calc) [facility] Comment: FASTING:NO FASTING: NO Test Performed at: [employer] [place] [address] Zoila La MD 10/14/2025 9:58 AM FOUNDER / CEO 10/14/2025 9:59 AM FOUNDER / CEO Zaire Wahl NP CHEMISTRY ORDERABLES Final R esult [facility] [phone] [place] [address] * (ABNORMAL) CBC WITH DIFFERENTIAL (10/14/2025 9:58 AM FOUNDER / CEO) Only the most recent of3 resultswithin the time period is included. WBC 8.7 3.8 - 10.8 Thousand/u L [facility] RBC 2.77(L) 3.80 - 5.10 Million/uL [facility] HEMOGLOBIN 8.4(L) 11.7 - 15.5 g/dL [facility] HEMATOCRIT 27.1(L) 35.9 - 46.0 % [facility] MCV 97.8 81.4 - 101.7 fL [facility] MCH 30.3 27.0 - 33.0 pg [facility] MCHC 31.0(L) 31.6 - 35.4 g/dL [facility] Comment: For adults, a slight decrease in the calculated MCHC value (in the range of 30 to 32 g/dL) is most likely not clinically significant; however, it should be interpreted with caution in correlation with other red cell parameters and the patient's clinical condition. RDW 14.3 11.0 - 15.0 % [facility] PLATELETS 174 140 - 400 Thousand/u L [facility] MPV 12.0 7.5 - 12.5 fL [facility] NEUTROPHIL ABSOLUTE 6,743 1,500 - 7,800 cells/uL [facility] LYMPHOCYTE ABSOLUTE 1,383 850 - 3,900 cells/uL [facility] MONOCYTE ABSOLUTE 479 200 - 950 cells/uL [facility] EOSINOPHIL ABSOLUTE 52 15 - 500 cells/uL [facility] BASOPHILS ABSOLUTE 44 0 - 200 cells/uL [facility] NEUTROPHIL 77.5 % [facility] LYMPHOCYTES 15.9 % [facility] MONOCYTE 5.5 % [facility] EOSINOPHILS 0.6 % [facility] BASOPHILS 0.5 % [facility] Comment: FASTING:NO FASTING: NO Test Performed at: [facility] [address] [place] [address] Zoila La MD Blood 10/14/2025 9:58 AM FOUNDER / CEO 10/14/2025 9:59 AM FOUNDER / CEO Everett Tavarez MD HEMATOLOGY ORDERABLES Final R esult Performing Organization Address City/[facility]/ZIP Co de Phone Number [facility] [phone] [facility] [address] [facility] [place] [address] * (ABNORMAL) RETICULOCYTES (10/14/2025 9:58 AM FOUNDER / CEO) Only the most recent of2 resultswithin the time period is included. RETICULOCYTES 4.6 % [facility] RETICULOCYTE, ABSOLUTE 126,040(H ) 20,000 - 80,000 cells/uL [facility] Comment: FASTING:NO FASTING: NO Test Performed at: [facility] [place] [address] MinooMackenzie La MD 10/14/2025 9:58 AM FOUNDER / CEO 10/14/2025 9:59 AM FOUNDER / CEO Zaire Wahl [employer] HEMATOLOGY ORDERABLES Final Result Performing Organization Address City/[facility]/ZIP Co de Phone Number [facility] [phone] [facility] [address] [facility] [place] [address] * LACTATE DEHYDROGENASE (10/14/2025 9:58 AM FOUNDER / CEO) Only the most recent of2 resultswithin the time period is included. LD (LACTATE DEHYDROGENASE) 166 120 - 250 U/L [facility] Comment: Test Performed at: [facility] [address] [address] [facility] [place] [address] Zoila La MD Blood 10/14/2025 9:58 AM FOUNDER / CEO 10/14/2025 9:59 AM FOUNDER / CEO Everett Tavarez MD CHEMISTRY ORDERABLES Final Re sult Performing Organization Address [facility]/ZIP Co de Phone Number [facility] [phone] [facility] [place] [address] * FERRITIN (10/14/2025 9:58 AM FOUNDER / CEO) Only the most recent of3 resultswithin the time period is included. Pathologist [facility] FERRITIN 87 16 - 288 ng/mL [facility] Comment: Test Performed at: [facility] [address] [address] Zoila La MD Blood 10/14/2025 9:58 AM FOUNDER / CEO 10/14/2025 9:59 AM FOUNDER / CEO Everett Tavarez MD CHEMISTRY ORDERABLES Final Re sult Performing Organization Address [facility] Co de Phone Number [facility] [phone] [facility] [address] [place], [place] [address] [address] * VITAMIN B12 LEVEL (10/14/2025 9:58 AM FOUNDER / CEO) [facility] VITAMIN B12 490 200 - 1100 pg/mL [facility] Comment: FASTING:NO FASTING: NO Test Performed at: [facility] [address] [facility] [place] [address] Zoila La MD 10/14/2025 9:58 AM FOUNDER / CEO 10/14/2025 9:59 AM FOUNDER / CEO Everett Tavarez MD CHEMISTRY ORDERABLES Final Re sult Performing Organization Address [facility] Co de Phone Number [facility] [phone] [facility] [address] [place] [address] [place] [address] * (ABNORMAL) COMPREHENSIVE METABOLIC PANEL (10/14/2025 9:58 AM FOUNDER / CEO) Only the most recent of2 resultswithin the time period is included. GLUCOSE 240(H) 65 - 139 mg/dL [facility] Comment: Non-fasting reference interval BUN 16 7 - 25 mg/dL [facility] CREATININE 0.89 0.50 - 1.05 mg/dL [facility] GFR 72 > OR = 60 mL/min/1. 73m2 [facility] BUN/CREAT RATIO SEE NOTE: 6 - 22 (calc) [facility] Comment: Not Reported: BUN and Creatinine are within reference range. SODIUM 136 135 - 146 mmol/L [facility] POTASSIUM 3.4(L) 3.5 - 5.3 mmol/L [facility] CHLORIDE 99 98 - 110 mmol/L [facility] CO2 21 20 - 32 mmol/L [facility] CALCIUM 9.2 8.6 - 10.4 mg/dL [facility] TOTAL PROTEIN 6.7 6.1 - 8.1 g/dL [facility] ALBUMIN 4.0 3.6 - 5.1 g/dL [facility] GLOBULIN 2.7 1.9 - 3.7 g/dL (calc) [facility] ALBUMIN/GLOBULIN RATIO 1.5 1.0 - 2.5 (calc) [facility] BILIRUBIN TOTAL 0.3 0.2 - 1.2 mg/dL [facility] ALKALINE PHOSPHATASE 68 37 - 153 U/L [facility] AST 50(H) 10 - 35 U/L [facility] ALT 44(H) 6 - 29 U/L [facility] Comment: Test Performed at: [facility] [address] [place] [address] Zoila La MD Blood 10/14/2025 9:58 AM FOUNDER / CEO 10/14/2025 9:59 AM FOUNDER / CEO us Everett Tavarez MD CHEMISTRY ORDERABLES Final Re sult [facility] [phone] [facility] [address] [facility] [place] [address] * (ABNORMAL) CBC WITHOUT DIFFERENTIAL (09/17/2025 12:19 PM FOUNDER / CEO) Pathologist [facility] WBC 9.9 3.8 - 10.8 Thousand/u L [facility] RBC 2.96(L) 3.80 - 5.10 Million/uL [facility] HEMOGLOBIN 8.9(L) 11.7 - 15.5 g/dL [facility] HEMATOCRIT 29.1(L) 35.0 - 45.0 % [facility] MCV 98.3 80.0 - 100.0 fL [facility] MCH 30.1 27.0 - 33.0 pg [facility] MCHC 30.6(L) 32.0 - 36.0 g/dL [facility] Comment: For adults, a slight decrease in the calculated MCHC value (in the range of 30 to 32 g/dL) is most likely not clinically significant; however, it should be interpreted with caution in correlation with other red cell parameters and the patient's clinical condition. RDW 14.2 11.0 - 15.0 % [facility] PLATELETS 164 140 - 400 Thousand/u L [facility] MPV 12.0 7.5 - 12.5 fL [facility] Comment: Test Performed at: [facility] [address] [place] [address] [place] [address] Zoila La MD 09/17/2025 12:1 9 PM FOUNDER / CEO 09/17/2025 12:20 PM FOUNDER / CEO us Danny Duckworth MD HEMATOLOGY ORDERABLES Final Resu lt [facility] [phone] [facility] [place] [address] * (ABNORMAL) HEMOGLOBIN A1C (09/17/2025 12:18 PM FOUNDER / CEO) Pathologist [facility] HEMOGLOBIN A1C 6.4(H) <5.7 % [facility] Comment: For someone without known diabetes, a hemoglobin A1c value between 5.7% and 6.4% is consistent with prediabetes and should be confirmed with a follow-up test. For someone with known diabetes, a value <7% indicates that their diabetes is well controlled. A1c targets should be individualized based on duration of diabetes, age, comorbid conditions, and other considerations. This assay result is consistent with an increased risk of diabetes. Currently, no consensus exists regarding use of hemoglobin A1c for diagnosis of diabetes for children. ESTIMATED AVERAGE GLUCOSE (MG/DL) 137 mg/dL [facility] ESTIMATED AVERAGE GLUCOSE (MMOL/L) 7.6 mmol/L [facility] Comment: Test Performed at: [facility] [address] [place] [address] [place] [address] Zoila La MD Blood 09/17/2025 12:1 8 PM FOUNDER / CEO 09/17/2025 12:18 PM FOUNDER / CEO us Danny Duckworth MD CHEMISTRY ORDERABLES Final Resul t [facility] [phone] [facility] [address] * (ABNORMAL) MICROALBUMIN/CREATININE RATIO, RANDOM UR (09/17/2025 11:05 AM FOUNDER / CEO) CREATININE, URINE 51 20 - 275 mg/dL [facility] ALBUMIN, URINE 3.0 See Note: mg/dL [facility] Comment: Reference Range: Reference Range Not established ALB/CREAT RATIO, URINE 59(H) <30 mg/g creat [facility] Comment: The ADA defines abnormalities in albumin excretion as follows: Albuminuria Category Result (mg/g creatinine) Normal to Mildly increased <30 Moderately increased 30-299 Severely increased > OR = 300 The ADA recommends that at least two of three specimens collected within a 3-6 month period be abnormal before considering a patient to be within a diagnostic category. Test Performed at: [facility] [address] [facility] [place] [address] Zoila La MD Urine URINE SPECIMEN OBTAINED BY CLEAN CATCH PROCEDURE / Unknown 09/17/2025 11:05 AM FOUNDER / CEO 09/18/2025 2:49 AM FOUNDER / CEO us Danny Duckworth MD URINE ORDERABLES Final Result [facility] [phone] [facility] [address] [place] [address] * REFERENCE LAB PROCESSING FEE (09/06/2025 9:25 AM CDT) Pathologist [facility] REFERENCE LAB SENDOUT Sent to Ref Lab 09/06/2025 12:02 PM CDT [facility] Other, specify BLOOD SPECIMEN / Unknown Collection / Unknown 09/06/2025 9:25 AM CDT 09/06/2025 10:13 AM CDT us Zaire Wahl NP CHEMISTRY ORDERABLES Final R esult [facility] CLIA # [id number] [address] [place] [address] * XR HAND 3+ VW RIGHT (08/26/2025 10:45 AM CDT) Anatomical Region Laterality Modality Wrist / Hand Computed Radiogr aphy Narrative 08/27/2025 5:20 PM CDT X-rays taken and independently reviewed, showing no acute fracture or dislocation. us Mohan Mosley MD DIAGNOSTIC IMAGING ORDERAB LES Final Result * VITAMIN B12 AND FOLATE (08/12/2025 10:14 AM CDT) Pathologist [facility] VITAMIN B12 603 200 - 1100 pg/mL [facility] FOLATE, SERUM >24.0 ng/mL [facility] Comment: Reference Range Low: <3.4 Borderline: 3.4-5.4 Normal: >5.4 Test Performed at: [facility] [address] [place] [address] Zoila La MD Blood 08/12/2025 10:1 4 AM CDT 08/12/2025 1:38 PM CDT Zaire Wahl [employer] CHEMISTRY ORDERABLES Final R esult [facility] [phone] [address] * MAMMO 3D SOFÍA SCREEN BILATERAL MOBILE (06/14/2024 12:26 PM CDT) Anatomical Region Laterality Modality Breast Bilateral Mammography Impressions 06/25/2024 4:28 PM CDT : No mammographic evidence of malignancy. BI-RADS ASSESSMENT: 2 - Benign RECOMMENDATION: Routine annual screening mammography. Narrative 06/25/2024 4:28 PM CDT EXAM: MAMMO SCRN BILAT 3D SOFÍA W OR WO CAD INDICATION: Screening COMPARISON: 08/11/2018 MAMMO PRIOR STUDY and 06/09/2012 MAMMO PRIOR STUDY BREAST COMPOSITION: The breasts are almost entirely fatty. FINDINGS: RIGHT BREAST: There are no suspicious masses, calcifications, or areas of architectural distortion. LEFT BREAST: There are no suspicious masses, calcifications, or areas of architectural distortion. There are unchanged benign-appearing calcifications. Danny Duckworth MD MAMMO ORDERABLES Final Result * (ABNORMAL) OCCULT BLOOD IMMUNOASSAY, COLORECTAL SCREEN (04/12/2024 12:00 PM CDT) FECAL GLOBIN SEE NOTE(A) [facility] Comment: FECAL GLOBIN BY IMMUNOCHEMISTRY Micro Number: [id number] Test Status: Final Specimen Source: Stool Specimen Quality: Adequate Fecal Globin: Detected Test Performed at: [facility] [address] [place] [address] Zoila La MD Stool STOOL SPECIMEN / Unknown 04/12/2024 12:00 PM CDT 04/16/2024 12:32 PM CDT us Danny Duckworth MD BODY FLUIDS AND STOOLS Final Res ult [facility] [phone] [facility] [address] [phone] from Last 3 Months or Most Recently Relevant to Health Maintenance Insurance [employer] [place] [address] [place] [address] * Guarantor: CRISTAL TAMEZ Account Type Relation to Patient Date of Phone Billing Address Personal/Family [address] [place] [address] Advance Directives For more information, please contact: [phone] * Full Code (Latest Code Status on File) Date Activated Date Inactivated Comments 06/28/2024 8:09 AM 06/28/2024 11:43 AM * Full Code Date Activated Date Inactivated Comments 06/09/2021 11:31 AM 06/11/2021 5:14 PM * Full Code Date Activated Date Inactivated Comments 06/09/2021 6:47 AM 06/09/2021 11:31 AM * Full Code Date Activated Date Inactivated Comments 06/09/2021 6:07 AM 06/09/2021 6:46 AM Care Teams Regulatory Submissions Specialist Relationship Specialty Start Date End Date Danny Duckworth MD [address] [place] [phone] PCP - General Family Practice 03/06/24
--- OUTSIDE RECORDS SUMMARY | 2025-11-09 10:42 | XMS_ITS | Encounter Summary ---
Author Organization [facility] Address [address] [place] [address] Care Team Providers Care Information Systems Project Manager Name Role Phone Danny Duckworth MD Primary Care Provider [phone] Reason for Visit * Reason Comments Med Refill Encounter Details Date Type Department Care Team ([facility] Contact Info) Description 11/03/2025 Refill [facility] [place] [address] [phone] Danny Duckworth MD [address] [phone] Gastroesophageal reflux disease, unspecified whether esophagitis present Social History Tobacco Use Types Packs/Day Years [...] on file Legal Sex Female 9:51 AM INTERACTIVE ART DIRECTOR Gender Identity Not on file Sexual Orientation Not on file documented as of this encounter Plan of Treatment Upcoming Encounters Date Type Department Care Team ([facility] Contact Info) Description 11/22/2025 11:00 AM INTERACTIVE ART DIRECTOR Appointment [facility] [address] [place] [phone] Cuauhtemoc Tan MD [address] [place] [phone] 11/25/2025 11:30 AM INTERACTIVE ART DIRECTOR Appointment [facility] [address] [place] [address] Cuauhtemoc Tan MD [address] [place] [phone] 11/25/2025 12:00 PM INTERACTIVE ART DIRECTOR Appointment [facility] [place] [address] Cuauhtemoc Tan MD [address] [place] [phone] 12/10/2025 10:40 AM INTERACTIVE ART DIRECTOR Office Visit [facility] [address] [phone] Danny Duckworth MD [address] [phone] 12/16/2025 11:10 AM INTERACTIVE ART DIRECTOR Appointment [facility] [address] [phone] Everett Tavarez MD [address] [phone] 12/23/2025 10:00 AM INTERACTIVE ART DIRECTOR Office Visit [facility] [place] [address] [phone] Everett Tavarez MD [address] [place] [phone] 03/19/2026 10:00 AM CDT Office Visit [facility] [address] [phone] Danny Duckworth MD [address] [phone] 05/07/2026 2:20 PM CDT Office Visit [facility] [address] [facility] [address] [place] [phone] [facility] [address] [facility] [address] [place] [phone] documented as of this encounter Visit Diagnoses Diagnosis Gastroesophageal reflux disease, unspecified whether esophagitis present documented in this encounter Care Teams Information Systems Project Manager Relationship Specialty Start Date End Date Danny Duckworth MD [address] [phone] PCP - General Family Practice 03/06/24 documented as of this encounter
--- OUTSIDE RECORDS SUMMARY | 2025-11-09 10:42 | XMS_ITS | Encounter Summary ---
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 Name Role Phone Melissa Ciera Corry MESA Primary Care Provider [phone] Encounter Details Date Type Department Care Team (Late st Contact Info) Description 01/21/2021 Ancillary Orders [facility] Orthopedics - Orthopedic [facility] [address] [place] [address] Darian Pizarro MD [address] [place] [address] Bilateral hip pain Social History Tobacco Use Types Packs/Day Years Used Date Smoking Tobacco: Every Day Cigarettes 1 32 Smokeless Tobacco: Never Alcohol Use Standard Drinks/Week Comments Yes 0 (1 standard drink = 0.6 oz pur e alcohol) a shot a day Comments No Sex and Gender Information Value Date Recorded Sex Assigned at Not on file Legal Sex 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 The left hip shows that the joint spaces are well-maintained there is no osteolytic or osteoblastic lesions of bone no fracture seen. us Darian Pizarro MD DIAGNOSTIC IMAGING ORDERABLES Final Result documented in this encounter Visit Diagnoses Diagnosis Bilateral hip pain Pain in joint, pelvic region and thigh Bilateral hip pain Pain in joint, pelvic region and thigh documented in this encounter Care Teams Tumbler Machine Operator Helper Relationship Specialty Start Date End Date Ciera Torres DO [facility] [address] [address] PCP - General Family Practice 02/18/16 documented as of this encounter
--- NOTE | 2025-11-09 10:43 | ED_ITS ---
HPI - SOB/Dyspnea 2 General: Chief Complaint: Upper Respiratory Infection Stated Complaint: SOB Time Seen by Provider: 11/09/25 10:38 Source: patient Mode of arrival: ambulatory Limitations: no limitations History of Present Illness: HPI Narrative: 65-year-old female states she has a hist ory of COPD states that over the last week she been having increasing shortness of breath along with wheezing and a slight cough. States her has been sick with a upper respiratory infection. States cough been nonproductive in nature she denies any fevers. She denies any chest pain denies any worse improved factors. Related Data Previous Rx's ?Medication ?Instructions ?Recorded cephalexin 500 mg capsule 500 mg PO TID 7 days #21 cap s 11/09/25 prednisone 50 mg tablet 50 mg PO DAILY #5 tabs 11/09 Allergies Allergy/AdvReac Type Severity Reaction Status Date / Time clindamycin Allergy Unknown Verified 11/09/25 10:42 Sulfa (Sulfonamide Allergy Unknown Verified 11/09/25 10:42 Antibiotics) Review of Systems 2 Resp: Reports: non-productive cough and wheezing Physical Exam 2 Const: COMMON NORMALS: patient oriented x3 HENMT: COMMON NORMALS: normocephalic and atraumatic HEAD & SCALP: n ormocephalic and atraumatic Neck/C-Spine: COMMON NORMALS: full ROM and supple Chest: COMMONS NORMALS: normal inspection of the chest and normal palpation of entire chest wall Resp: COMMON NORMALS: normal respiratory effort, No retractions and No use of accessory muscles AUSCULTATION: wheezes Cardio: COMMON NORMALS: regular rate, regular rhythm and No murmurs present (Cardio) RATE: regular rate RHYTHM: regular rhythm Extremity: COMMON NORMALS: normal to inspection and full ROM Neuro: COMMON NORMALS: patient oriented x3, moves all extremities and no focal motor deficits Psych: COMMON NORMALS: mental status grossly normal, Normal thought process present and cooperative THOUGHT PROCESS: Normal thought process present Skin: COMMON NORMALS: no rashes or lesions noted and no wounds GENERAL SKIN EXAM: no rashes or lesions noted Course 2 Vital Signs: Vital signs: Vital Signs Temperature 98.7 F 11/09/25 10:54 Pulse Rate 71 11/09/25 12:02 Respiratory Rate 18 11/09/25 12:02 Blood Pressure 134/54 11/09/25 10:40 Pulse Oximetry 94 11/09/25 12:02 Oxygen Delivery Me thod Room Air 11/09/25 12:02 MDM - SOB/Dyspnea Medical Decision Making Patient presents for shortness of breath wheezing cough congestion over the last 5 days differential includes URI, pneumonia, COPD exacerbation, pulm emboli. Patient's had no chest pain she has no tachycardia she has no signs of pulm emboli here on her exam she does have wheezing consistent with likely a COPD exacerbation and a bronchitis x-ray was interpreted by me showed no pneumonia. Patient has improved here after breathing treatment along with IV steroids. She has had no hypoxia here I feel she is stable for discharge we will place her on Keflex along with a 5-day prednisone burst she is to follow-up with PCP and return if worsening she understands agrees to plan. Medical Records I reviewed the patient's medical records. Lab Data I reviewed the patient's lab results. 11/09/25 10:48 11/09/25 10:48 Labs/Radiology: Laboratory Results WBC 8.99 10^3/uL (3.29-11.43) 11/09/25 10:48 RBC 3.28 10^6/uL (3.85-5.65) L 11/09/25 10:48 Hgb 10.00 g/dL (11.27-16.99) L 11/09/25 10:48 Hct 33.3 % (36-47) L 11/09/25 10:48 MCV 101.5 fl (85-98) H 11/09/25 10:48 MCH 30.5 pg (27-33) 11/09/25 10:48 MCHC 30.0 g/dL (30-55) 11/09/25 10:48 RDW 16.0 % (12.1-15.1) H 11/09/25 10:48 Plt Count 159 10^3/cmm (157-399) 11/09/25 10:48 MPV 11.7 fL (7.4-10.4) H 11/09/25 10:48 Neut % (Auto) 69.1 % 11/09/25 10:48 Lymph % (Auto) 21.0 % 11/09/25 10:48 Person % (Auto) 7.6 % 11/09/25 10:48 Eos % (Auto) 1.1 % 11/09/25 10:48 Baso % (Auto) 0.4 % 11/09/25 10:48 Neut # (Auto) 6.21 10^3/uL (1.8-7.7) 11/09/25 10:48 Lymph # (Auto) 1.9 10^3/uL (0.8-4.8) 11/09/25 10:48 Person # (Auto) 0.7 10^3/uL (0.2-0.9) 11/09/25 10:48 Eos # (Auto) 0.1 10^3/uL (0.0-0.8) 11/09/25 10:48 Baso # (Auto) 0.0 10^3/uL (0.0-0.1) 11/09/25 10:48 Nucleated RBC % (auto) 0 % 11/09/25 10:48 Nucleated RBCs # 0.0 /100WBC 11/09/25 10:48 Sodium 134 mmol/L (136-145) L 11/09/25 10:48 Potassium 4.3 mmol/L (3.5-5.1) 11/09/25 10:48 Chloride 97 mmol/L (98-107) L 11/09/25 10:48 Carbon Dioxide 25 mmol/L (22-29) 11/09/25 10:48 Anion Gap 16.3 (5-19) 11/09/25 10:48 BUN 17 mg/dL (8-23) 11/09/25 10:48 Creatinine 1.1 mg/dL (0.5-0.9) H 11/09/25 10:48 GFR Calculation 49.8 mL/min (90-130) L 11/09/25 10:48 Glucose 139 mg/dL (65-115) H 11/09/25 10:48 Calculated Osmolality 282 mOsm/kg (285-295) L 11/09/25 10:48 Calcium 9.0 mg/dL (8.5-10.5) 11/09/25 10:48 Total Bilirubin 0.2 mg/dL (0.15-1.2) 11/09/25 10:48 AST 66 U/L (0-32) H 11/09/25 10:48 ALT 68 U/L (0-33) H 11/09/25 10:48 Alkaline Phosphatase 84 U/L (35-105) 11/09/25 10:48 NT-Pro-B Natriuret Pep 115 pg/mL (0-125) 11/09/25 10:48 Total Protein 7.2 g/dL (6.6-8.7) 11/09/25 10:48 Albumin 4.0 g/dL (3.5-5.2) 11/09/25 10:48 Globulin 3.2 g/dL (1.3-4.6) 11/09/25 10:48 Influenza A (PCR) Negative (Negative) 11/09/25 10:47 Influenza Type B (PCR) Negative (Negative) 11/09/25 10:47 RSV (PCR) Negative (Negative) 11/09/25 10:47 SARS-CoV-2 (PCR) Negative (Negative) 11/09/25 10:47 All radiology interpretation(s) finalized by discharge Discharge Plan Discharge Patient Disposition: Home Clinical Impression: Acute bronchiolitis Condition: Stable Prescriptions: New cephalexin 500 mg capsule 500 mg PO TID 7 Days Qty: 21 0RF prednisone 50 mg tablet 50 mg PO DAILY Qty: 5 0RF Discharge Orders: Discharge ED (Routine); Ordered 11/09/25 Ordered By: Shalini Reyes Referrals: Danny Duckworth MD [Primary Care Provider, Family Practice] Discharge Diet: Advance as tolerated Discharge Activity: Resume usual activity Patient Instructions: Acute Bronchitis (ED) Print Language: Hungarian Coding Level of Care Code ED 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
[2025-11-09 10:54] VITALS: PULSE 70; RESP 19; TEMP 37.1; O2SAT 93
[2025-11-09 10:56] LABS: Hematocrit 33.3 % (36-47); Hemoglobin 10.00 g/dL (11.27-16.99); Mean Corpuscular HGB Conc 30.0 g/dL (30-55); Mean Corpuscular Hemoglobin 30.5 pg (27-33); Mean Corpuscular Volume 101.5 fl (85-98); Nucleated Red Blood Cells % 0 %; Platelet Count 159 10^3/cmm (157-399); Red Blood Count 3.28 10^6/uL (3.85-5.65); White Blood Count 8.99 10^3/uL (3.29-11.43)
[2025-11-09 11:23] LABS: Alanine Aminotransferase 68 U/L (0-33); Albumin Level 4.0 g/dL (3.5-5.2); Alkaline Phosphatase 84 U/L (35-105); Anion Gap 16.3 (5-19); Aspartate Amino Transferase 66 U/L (0-32); Blood Urea Nitrogen 17 mg/dL (8-23); Calcium 9.0 mg/dL (8.5-10.5); Carbon Dioxide 25 mmol/L (22-29); Chloride 97 mmol/L (98-107); Globulin 3.2 g/dL (1.3-4.6); Glucose 139 mg/dL (65-115); NT Pro B Type Natriuretic Pept 115 pg/mL (0-125); Osmolality Calculated 282 mOsm/kg (285-295); Potassium 4.3 mmol/L (3.5-5.1); Sodium 134 mmol/L (136-145); Total Protein 7.2 g/dL (6.6-8.7)
[2025-11-09 11:45] LABS: Respiratory Syncytial Virus Ce NEGATIVE (Negative); SARS-CoV-2 PCR NEGATIVE (Negative)
[2025-11-09 12:02] VITALS: PULSE 71; RESP 18; O2SAT 94
[2025-11-09] MEDS: methylPREDNISolone sod succ 125 mg/2 mL INJ IV (12:11)
== END 2025-11-09 12:43 | disposition home or self-care (01) ==
PROVIDERS: Emergency Provider Emergency Medicine; PCP Family Medicine
DX: J21.9 Acute bronchiolitis, unspecified (principal); Z11.52 Encounter for screening for COVID-19; J44.9 Chronic obstructive pulmonary disease, unspecified
CPT/HCPCS: 71045; 80053; 83880; 85025; 87637; 94640; 96374; 99285; J2919; J7613; J9999